=== PATIENT | female | born 1960 | race Caucasian/White ===

== ENCOUNTER 2019-09-07 10:25 | Emergency (ER) | payer MEDICAID, OTHER ==
--- OUTSIDE RECORDS SUMMARY | 2019-09-07 10:27 | XMS REPORT ---
:1960 Author Organization e[employer] Care Team Providers Name Role Phone [facility] Provider Role Unavailable Allergies, Adverse Reactions, Alerts Substance Reaction Event Type Sulfa Info Not Available Drug Allergy Problems Problem Type Condition Code Onset Dates Condition Status Assessment Tobacco use disorder F17.200 Active Assessment Panic disorder [episodic paroxysmal F41.0 Active anxiety] Assessment Left ankle pain, unspecified M25.572 Active chronicity Assessment Adult BMI 28.0-28.9 kg/sq m Z68.28 Active Problem Panic disorder [episodic paroxysmal F41.0 Active anxiety] Problem Tobacco use disorder F17.200 Active Problem Generalized anxiety disorder F41.1 Active Assessment 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), combined type Assessment Generalized anxiety disorder F41.1 Active Problem 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), combined type Medications Medication Code Code Instructions Start End Status Dosage System Date Date Adderall ND 53969214348 30 MG Orally Dec 10, Active 1 tablet Twice a day 2019 Alprazolam NDC [id number] 1 MG Orally Dec 10, Active 1 tablet Twice a day PRN 2019 SEVERE ANXIETY Alprazolam NDC [id number] 1 MG Orally Inactive 1 tablet on Twice a day PRN the tongue SEVERE ANXIETY and allow to dissolve Results No Known Results Summary Purpose eClinicalWorks Submission
[2019-09-07] MEDS ORDERED: IBUPROFEN 200 MG TAB PO ONE (11:21)
[2019-09-07] MEDS ORDERED: ACETAMINOPHEN 500 MG TAB ONE (11:22)
[2019-09-07] MEDS ORDERED: IBUPROFEN 400 MG TAB ONE (11:22)
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
[2019-09-07 12:52] VITALS: O2SAT 100
[2019-09-07 12:54] VITALS: BP 110/76; TEMP 98
== END 2019-09-07 12:44 | disposition home or self-care (01) ==
LOC: ER 10:25
DX: S93.601A Unspecified sprain of right foot, initial encounter (principal); S23.3XXA Sprain of ligaments of thoracic spine, initial encounter; V59.40XA Driver of pick-up truck or van injured in collision with unspecified motor vehicles in traffic accident, initial encounter; Z88.2 Allergy status to sulfonamides; I10 Essential (primary) hypertension; F17.210 Nicotine dependence, cigarettes, uncomplicated
CPT/HCPCS: 71046; 72070; 99283

== ENCOUNTER 2020-08-13 15:40 | Emergency (ER) | payer OTHER ==
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
[2020-08-13] MEDS ORDERED: LORazepam 2 MG/ML VIAL ONE (16:18)
[2020-08-13] MEDS ORDERED: ONDANSETRON 4 MG/2 ML VIAL ONE (16:18)
[2020-08-13] MEDS ORDERED: NA CHLORIDE 0.9% 1,000 ML ONE (16:18)
[2020-08-13 16:33] LABS: Basophils % 0.7 % (0-1.3); Hematocrit 37.6 % (36.0-45.0); Lymphocytes % 27.8 % (15.3-44.8); MPV 9.6 fL (7.6-11.3); RBC Red Blood Cell Count 4.03 M/uL (3.86-4.86)
[2020-08-13] MEDS ORDERED: LORAZEPAM 1 MG TABLET ONE (16:50)
[2020-08-13] MEDS ORDERED: ONDANSETRON 4 MG (ODT) TAB ONE (16:50)
[2020-08-13 16:58] LABS: Protime INR 0.95
[2020-08-13 17:21] LABS: ALT/SGPT 35 U/L (12-78); AST/SGOT 47 U/L (15-37); Alkaline Phosphatase 81 U/L (45-117); BUN Blood Urea Nitrogen 15 mg/dL (7-18); Bicarbonate 24 mmol/L (21-32); Bilirubin Direct 0.2 mg/dL (0-0.2); Glucose Level 88 mg/dL (74-106); Potassium 3.4 mmol/L (3.5-5.1); Protein, Total 7.6 g/dL (6.4-8.2); Sodium Level 142 mmol/L (136-145); Troponin I < 0.02 ng/mL (0.0-0.045)
--- NOTE | 2020-08-13 18:06 | EDPHYS ---
Physician Documentation [facility] Name: Ana Anne Age: 60 yrs Sex: Female : 1960 Arrival Date: 08/13/2020 Time: 15:42 Bed 5 Private MD: ED Physician Jeromy Cool HPI: 08/13 15:55 This 60 yrs old Female presents to ER via Ambulatory with complaints of Drug cp Abuse, Anxiety. 15:55 The patient presents to the emergency department with anxiety, a history of substance cp abuse, Type: methamphetamines, last use 3 days ago. 15:55 Past psychiatric history: Prior diagnosis: bipolar disorder. Associated signs and cp symptoms: Pertinent positives; chest pain, Pertinent negatives: abdominal pain, hallucinations, homicidal ideation, suicide ideation. Severity of symptoms: in the emergency department the symptoms are unchanged despite home interventions. Historical: - Allergies: 15:51 Sulfa (Sulfonamide Antibiotics); sv - PMHx: 15:51 Anxiety; Bipolar disorder; Hypertension; intermittant hypertension; OVERDOSE - SUICIDE sv ATTEMPT; - PSHx: 15:51 Appendectomy; ; L arm; sv - Social history:: Patient uses street drugs, marijuana, Methamphetamine (Meth). ROS: 16:00 Constitutional: Negative for body aches, chills, fever, poor PO intake. cp 16:00 Eyes: Negative for injury, pain, redness, and discharge. cp 16:00 ENT: Negative for ear pain, sore throat, difficulty swallowing, difficulty handling secretions. 16:00 Cardiovascular: Positive for chest pain, Negative for edema, palpitations. 16:00 Respiratory: Negative for cough, wheezing. 16:00 Abdomen/GI: Positive for nausea, vomiting, Negative for diarrhea, constipation. 16:00 Neuro: Negative for altered mental status, headache, weakness. 16:00 Psych: Positive for anxiety, Negative for auditory hallucinations, visual hallucinations, homicidal ideation, suicidal ideation. 16:00 All other systems are negative. Exam: 16:05 Constitutional: The patient appears in no acute distress, alert, awake, cp non-diaphoretic, non-toxic, well developed, well nourished, anxious. 16:05 Head/Face: Normocephalic, atraumatic. cp 16:05 Eyes: Periorbital structures: appear normal, Pupils: equal, round, and reactive to light and accomodation, Extraocular movements: intact throughout, Conjunctiva: normal, no exudate, no injection, Sclera: no appreciated abnormality, Lids and lashes: appear normal, bilaterally. 16:05 ENT: External ear(s): are unremarkable, Nose: is normal, Mouth: Lips: moist, Oral mucosa: moist, Posterior pharynx: Airway: no evidence of obstruction, patent. 16:05 Neck: ROM/movement: is normal, is supple, without pain, no range of motions limitations. 16:05 Chest/axilla: Inspection: normal, Palpation: is normal, no crepitus, no tenderness. 16:05 Cardiovascular: Rate: normal, Rhythm: regular, Edema: is not appreciated, JVD: is not appreciated. 16:05 Respiratory: the patient does not display signs of respiratory distress, Respirations: normal, no use of accessory muscles, no retractions, labored breathing, is not present, Breath sounds: are clear throughout, no decreased breath sounds, no stridor, no wheezing. 16:05 Abdomen/GI: Inspection: abdomen appears normal, Bowel sounds: active, all quadrants, Palpation: abdomen is soft and non-tender, in all quadrants. 16:05 Back: pain, is absent, ROM is normal. 16:05 Skin: no rash present. 16:05 Neuro: Orientation: to person, place \T\ time. Mentation: is normal, Motor: moves all fours, strength is normal, Gait: is steady, at a normal pace, without difficulty. 16:05 Psych: Behavior/mood is cooperative, anxious, Affect is animated, Patient has no thoughts/intents to harm self or others. Judgement / Insight is normal. Delusions/hallucinations are not present. 16:15 ECG was reviewed by the Attending Physician. cp Vital Signs: 15:49 BP 142 / 109; Pulse 106; Resp 20; Temp 97.6; Pulse Ox 99% ; sv 16:00 BP 132 / 81; Pulse 82; Resp 20; Pulse Ox 100% on R/A; em MDM: 15:54 Patient medically screened. cp 17:00 Differential diagnosis: acute psychosis, drug overdose, cardiac arrythmia. cp 18:05 Data reviewed: vital signs, nurses notes, lab test result(s), EKG. 08/13 15:53 Order name: Acetaminophen; Complete Time: 17:32 cp 08/13 15:53 Order name: Basic Metabolic Panel; Complete Time: 17:32 cp 08/13 17:33 Interpretation: Normal except: K 3.4; CL 111; GFR 47. cp 08/13 15:53 Order name: CBC with Diff; Complete Time: 17:16 cp 08/13 17:16 Interpretation: Normal except: PLT 142. 08/13 15:53 Order name: ETOH Level; Complete Time: 17:32 cp 08/13 15:53 Order name: Hepatic Function; Complete Time: 17:32 cp 08/13 15:53 Order name: PT-INR; Complete Time: 17:16 cp 08/13 15:53 Order name: Ptt, Activated; Complete Time: 17:16 cp 08/13 15:53 Order name: Salicylate; Complete Time: 17:32 cp 08/13 15:53 Order name: Troponin I; Complete Time: 17:32 cp 08/13 15:53 Order name: EKG; Complete Time: 15:55 08/13 15:53 Order name: EKG - Nurse/Tech; Complete Time: 16:41 08/13 15:53 Order name: Labs collected and sent; Complete Time: 16:41 cp EC:15 Rate is 83 beats/min. Rhythm is regular. VA interval is normal. QRS interval is normal. cp QT interval is normal. Interpreted by me. Reviewed by me. Administered Medications: 16:40 Drug: Zofran (Ondansetron) 4 mg Route: PO; em 17:56 Follow up: Response: No adverse reaction em 16:40 Drug: Ativan 1 mg Route: PO; em 17:57 Follow up: Response: No adverse reaction em 16:41 Not Given (Physician Discretion): Zofran (Ondansetron) 4 mg IVP once; over 2 minutes em 16:41 Not Given (Physician Discretion): Ativan 0.5 mg IVP once em 16:41 Not Given (Physician Discretion): NS 0.9% 1000 ml IV at 1000 ml/hr Per protocol; 1000 em mL bolus 17:57 Not Given (Patient Eloped): Potassium Effervescent Tablet 25 mEq PO once; dissolve in 4 em ounces of water or juice Disposition: 18:09 Co-signature as Attending Physician, Jeromy Cool MD. rn Disposition: 08/13/20 18:05 Patient left the facility after being seen by provider. Preliminary diagnosis is Adverse effect of amphetamines. - Patient left due to unknown. - Condition is Stable. - Problem is new. - Symptoms have improved. Signatures: Dispatcher [employer] Reina Rodriguez, SURENDRA AGOSTO Raj George RN RN Jeromy Cool MD MD rn Page, Corey, NUVIA PA cp Corrections: (The following items were deleted from the chart) 17:57 15:53 IV Saline Lock ordered. [facility] 17:57 15:53 Urine Dipstick-Ancillary ordered. [facility] 18:01 15:55 URINE DRUG SCREEN+CHEM UR.LAB.BRZ ordered. [facility] 18:09 18:05 08/13/2020 18:05 Patient left the facility after being seen by provider. em Preliminary diagnosis is Adverse effect of amphetamines. Reason stated they are leaving due to unknown. Condition is Stable. Problem is new. Symptoms have improved. cp
--- NOTE | 2020-08-13 18:06 | ER ---
Nurse's Notes [facility] Name: Ana Anne Age: 60 yrs Sex: Female : 1960 Arrival Date: 08/13/2020 Time: 15:42 Bed 5 Private MD: Diagnosis: Adverse effect of amphetamines Presentation: 08/13 15:49 Chief complaint: Patient states: smokes marijuana daily and 2 days ago her friend had sv her smoke some meth. Since then she has been having anxiety. Coronavirus screen: Client denies travel out of the [place] in the last 14 days. At this time, the client does not indicate any symptoms associated with coronavirus-19. Ebola Screen: No symptoms or risks identified at this time. Initial Sepsis Screen: Does the patient meet any 2 criteria? No. Patient's initial sepsis screen is negative. Does the patient have a suspected source of infection? No. Patient's initial sepsis screen is negative. Risk Assessment: Do you want to hurt yourself or someone else? Patient reports no desire to harm self or others. Onset of symptoms was August 11, 2020. 15:49 Method Of Arrival: Ambulatory sv 15:49 Acuity: ISABEL 3 sv Historical: - Allergies: 15:51 Sulfa (Sulfonamide Antibiotics); sv - PMHx: 15:51 Anxiety; Bipolar disorder; Hypertension; intermittant hypertension; OVERDOSE - SUICIDE sv ATTEMPT; - PSHx: 15:51 Appendectomy; ; L arm; sv - Social history:: Patient uses street drugs, marijuana, Methamphetamine (Meth). Screenin:00 Abuse screen: Denies threats or abuse. Nutritional screening: No deficits noted. em Tuberculosis screening: No symptoms or risk factors identified. Fall Risk None identified. Assessment: 16:00 General: Appears in no apparent distress. uncomfortable, Behavior is cooperative, em anxious. Pain: Denies pain. Neuro: Level of Consciousness is awake, alert, obeys commands, Oriented to person, place, time, situation. Cardiovascular: Capillary refill < 3 seconds Patient's skin is warm and dry. Respiratory: Airway is patent Respiratory effort is even, unlabored, Respiratory pattern is regular, symmetrical. GI: Reports nausea. Derm: Skin is intact, is healthy with good turgor, Skin is pink, warm \T\ dry. Musculoskeletal: Range of motion: intact in all extremities. 16:34 Reassessment: unable to obtain IV at this time, provider notified, received VO for 1 mg em Ativan PO and Zofran 4 mg PO x 1. 17:40 Reassessment: pt not in room, checked restrooms. em Vital Signs: 15:49 BP 142 / 109; Pulse 106; Resp 20; Temp 97.6; Pulse Ox 99% ; sv 16:00 BP 132 / 81; Pulse 82; Resp 20; Pulse Ox 100% on R/A; em ED Course: 15:42 Patient arrived in ED. ds1 15:46 Raj George, RN is Primary Nurse. em 15:47 Vinod Gonzales PA is PHCP. cp 15:47 Jeromy Cool MD is Attending Physician. cp 15:50 Triage completed. sv 15:51 Nurse Practitioner and/or Physician Electronic Test Technician to see patient. sv 15:51 Arm band placed on. sv 16:00 Patient has correct armband on for positive identification. Bed in low position. Call em light in reach. Side rails up X2. Adult w/ patient. Pulse ox on. NIBP on. 16:18 EKG done, by ED staff, reviewed by Vinod PEDERSEN. dh3 16:20 Missed attempt(s): 22 gauge in left antecubital area. Bleeding controlled, band aid em applied, catheter tip intact. 16:23 Missed attempt(s): 24 gauge in right hand. Bleeding controlled, band aid applied, em catheter tip intact. 16:27 Missed attempt(s): 20 gauge in left antecubital area. Bleeding controlled, band aid dh3 applied, catheter tip intact. 16:35 Missed attempt(s): 24 gauge in right wrist. Bleeding controlled, band aid applied, dh3 catheter tip intact. Administered Medications: 16:40 Drug: Zofran (Ondansetron) 4 mg Route: PO; em 17:56 Follow up: Response: No adverse reaction em 16:40 Drug: Ativan 1 mg Route: PO; em 17:57 Follow up: Response: No adverse reaction em 16:41 Not Given (Physician Discretion): Zofran (Ondansetron) 4 mg IVP once; over 2 minutes em 16:41 Not Given (Physician Discretion): Ativan 0.5 mg IVP once em 16:41 Not Given (Physician Discretion): NS 0.9% 1000 ml IV at 1000 ml/hr Per protocol; 1000 em mL bolus 17:57 Not Given (Patient Eloped): Potassium Effervescent Tablet 25 mEq PO once; dissolve in 4 em ounces of water or juice Outcome: 17:40 Eloped from waiting room, after seeing physician Time discovered patient gone: July at 17:40 18:09 Patient left the ED. em Signatures: Reina Tsai RN RN Raj George RN RN Deepti Singh ds1 Vinod Gonzales PA PA cp Herrera, Deanna 3 Corrections: (The following items were deleted from the chart) 15:51 15:49 Onset of symptoms was August 12, 2020 federico caballero
[2020-08-13 22:44] VITALS: TEMP 97.6
[2020-08-13 22:45] VITALS: BP 132/81; O2SAT 100
== END 2020-08-13 18:09 | disposition left against medical advice (07) ==
LOC: ER 15:40
DX: F41.9 Anxiety disorder, unspecified (principal); T43.625A Adverse effect of amphetamines, initial encounter; F31.9 Bipolar disorder, unspecified; Z88.2 Allergy status to sulfonamides
CPT/HCPCS: 93005; 85025; 80048; 36415; 80320; 80329 ×2; 85610; 80076; 85730; 84484; 99283; J7030; J2405

== ENCOUNTER 2020-09-05 17:33 | Emergency (ER) | payer OTHER ==
--- OUTSIDE RECORDS SUMMARY | 2020-09-05 17:35 | XMS REPORT | Continuity of Care Document ---
:1960 Author Organization [facility] t Address [address] [place] [address] Care Team Providers Name Role Phone Unavailable Unavailable Unavailable Problems Condition Condition Condition Status Onset Resolution Last Treating Co mments Source Name Details Category Date Date Treatment Clinician Date Tobacco Tobacco Problem Active [facility] Panic Panic Problem Active [facility] disorder disorder [facility] - [episodic [episodic Rikki cherie paroxysmal paroxysmal l anxiety] anxiety] Outpat i ent Clinics Generalize Generalize Problem Active [facility] anxiety d anxiety [facility] - disorder disorder [facility] Attention Attention Problem Active [facility] deficit deficit [facility] - hyperactiv hyperactiv Me moria ity ity l disorder disorder Outpat i (ADHD), (ADHD), 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 History of History of Problem Active [facility] cannabis cannabis [facility] - dependence dependence Me moria /abuse /[facility]use [facility] Vitamin D Vitamin D Problem Active [facility] deficiency deficiency Zainab kes - disease disease [facility] Allergies, Adverse Reactions, Alerts Allergy Allergy Status Severity Reaction(s) Onset Inactive Treating Comm ents Source Name Type Date Date Clinician Sulfa Adverse Active Info Not [facility] Reaction Available [facility] Medications Ordered Filled Start Stop Current Ordering Indication Dosage Frequency Signature Comments Components Source Medication Medication Date Date Medication? Clinician (SIG) Name Name Adderall Adderall Yes Boris [address] [facility] 7-07 Szym[facility]ki [facility] - 00:00: [facility] 00 [facility] Alprazolam Alprazolam 2018-09 Yes Boris [address] [facility] 2-10 Szymanski [facility] - 00:[facility]: [facility] 00 [facility] Procedures This patient has no known procedures. Encounters Start End Encounter Admission Attending Care Care Encounter Source Date/Time Date/Time Type Type Clinicians Facility Department ID 2020-03-28 2020-03-28 [facility] [id number] [facility] [address] 09:08:00 09:08:[address] [facility] l Medicine Outpati ent Clinics 2020-03-08 2020-03-08 [facility] [id number] [facility] 08[facility]04[facility]00 08:04:00 t [facility] Medicine Outpati ent Clinics 2020-02-28 2020-02-28 [facility] [id number] [facility] [address] 10:00:00 10:00:[address] [facility] l Medicine Outpati ent Clinics 2019-12-29 2019-12-29 [facility] [id number] [facility] [address] 11:00:00 11:00:00 t [facility] Medicine Outpati ent Clinics 2019-11-30 2019-11-30 [facility] [id number] [facility] 11[facility]32:00 11:32:00 t [facility] Medicine Outpati ent Clinics 2019-11-30 2019-11-30 [facility] [id number] [facility] 08:30:00 08:30:00 t [facility] Medicine Outpati ent Clinics 2019-11-01 2019-11-01 [facility] [id number] [address] 10:30:00 10:30:00 t [facility] Medicine Outpati ent Clinics 2019-09-30 2019-09-30 [facility] [id number] 08:30:00 08:30:00 t [facility] Medicine Outpati ent Clinics 2019-08-31 2019-08-31 [facility] [id number] 10:00:00 10:00:00 t [facility] Medicine Outpati ent Clinics Results This patient has no known results.
[2020-09-05] MEDS ORDERED: LIDOCAINE 1% MPF 5 ML VIAL ONE (19:43)
--- NOTE | 2020-09-05 19:51 | ER ---
Nurse's Notes [facility] Name: Ana Anne Age: 60 yrs Sex: Female : 1960 Arrival Date: 09/05/2020 Time: 17:36 Bed 15 Private MD: Diagnosis: Finger Laceration Presentation: 09/05 17:47 Chief complaint: Patient states: laceration to the left index finger with a knife. sv Coronavirus screen: Client denies travel out of the [place] in the last 14 days. At this time, the client does not indicate any symptoms associated with coronavirus-19. Ebola Screen: No symptoms or risks identified at this time. Complicating Factors: There are no complicating factors for this patient. Risk Assessment: Do you want to hurt yourself or someone else? Patient reports no desire to harm self or others. Onset of symptoms was September 05, 2020. 17:47 Method Of Arrival: Ambulatory sv 17:47 Acuity: ISABEL 4 sv 17:48 Initial Sepsis Screen: Does the patient meet any 2 criteria? No. Patient's initial sv sepsis screen is negative. Does the patient have a suspected source of infection? No. Patient's initial sepsis screen is negative. Triage Assessment: 17:50 General: Appears in no apparent distress. comfortable, Behavior is calm, cooperative, sv appropriate for age. Pain: Complains of pain in left index finger. Neuro: Level of Consciousness is awake, alert, obeys commands, Oriented to person, place, time, situation, Gait is steady. Respiratory: Respiratory effort is even, unlabored. Injury Description: Laceration sustained to palmar aspect of distal phalanx of left index finger is contaminated, 0.5 to 2.5 cm long. Historical: - Allergies: 17:48 Sulfa (Sulfonamide Antibiotics); sv - PMHx: 17:48 Anxiety; Bipolar disorder; Hypertension; intermittant hypertension; OVERDOSE - SUICIDE sv ATTEMPT; - PSHx: 17:48 Appendectomy; ; L arm; sv - Immunization history:: Flu vaccine is up to date. - Social history:: Smoking status: Patient reports the use of cigarette tobacco products, smokes one pack cigarettes per day. Screenin:20 Abuse screen: Denies threats or abuse. Nutritional screening: No deficits noted. jb4 Tuberculosis screening: No symptoms or risk factors identified. Fall Risk None identified. Assessment: 19:20 General: Appears in no apparent distress. comfortable, Behavior is calm, cooperative, jb4 appropriate for age. Pain: Denies pain. Neuro: Level of Consciousness is awake, alert, obeys commands, Oriented to person, place, time, situation. Cardiovascular: Patient's skin is warm and dry. Respiratory: Airway is patent Respiratory effort is even, unlabored, Respiratory pattern is regular, symmetrical. GI: No signs and/or symptoms were reported involving the gastrointestinal system. : No signs and/or symptoms were reported regarding the genitourinary system. EENT: No signs and/or symptoms were reported regarding the EENT system. Derm: Skin is pink, warm \T\ dry. Musculoskeletal: Circulation, motion, and sensation intact. Range of motion: intact in all extremities. Injury Description: Laceration sustained to left index finger. Vital Signs: 17:48 BP 107 / 71; Pulse 72; Resp 18; Temp 97.1; Pulse Ox 99% ; Weight 95.25 kg; Height 5 ft. sv 7 in. (170.18 cm); 17:48 Body Mass Index 32.89 (95.25 kg, 170.18 cm) sv ED Course: 17:36 Patient arrived in ED. as 17:43 Patient's name was called from ER lobby. No response. sv 17:47 Triage completed. sv 18:38 Emory Calderón PA is PHCP. [facility] 18:38 Vinod Eagle MD is Attending Physician. m 19:20 Patient has correct armband on for positive identification. Bed in low position. Call jb4 light in reach. Side rails up X 1. Pulse ox on. NIBP on. 19:20 Assist provider with laceration repair on left index finger using sutures. Set up tray. jb4 Performed by Emory PEDERSEN Patient tolerated well. Patient did not have IV access during this emergency room visit. 19:35 Markus Monroy, RN is Primary Nurse. jb4 Administered Medications: 19:35 Drug: Lidocaine (1 %) 20 ml {Note: administered by ER provider.} Volume: 20 ml; Route: jb4 Infiltration; 19:50 Follow up: Response: No adverse reaction jb4 Outcome: 19:50 Discharge ordered by . jm 20:15 Discharged to home ambulatory. jb4 20:15 Condition: stable 20:15 Discharge instructions given to PT left prior to receiving discharge instructions. 20:27 Patient left the ED. jb4 Signatures: Reina Tsai, RN RN Emory Calderón PA PA jmm Martinez, Amelia as Bryson, James, RN RN jb4 Corrections: (The following items were deleted from the chart) 17:50 17:47 Acuity: ISABEL 3 sv sv 17:50 17:48 Pulse 72bpm; Resp 18bpm; Pulse Ox 99%; Temp 97.1F; 95.25 kg; Height 5 ft. 7 in.; sv BMI: 32.8; sv
--- NOTE | 2020-09-05 19:51 | EDPHYS ---
Physician Documentation [facility] Name: Ana Anne Age: 60 yrs Sex: Female : 1960 Arrival Date: 09/05/2020 Time: 17:36 Bed 15 Private MD: ED Physician Vinod Eagle HPI: 09/05 19:40 This 60 yrs old Female presents to ER via Ambulatory with complaints of jmm Laceration - finger. 19:40 The patient or guardian reports injury, pain. Onset: The symptoms/episode jmm began/occurred acutely, just prior to arrival. Modifying factors: The symptoms are alleviated by nothing, the symptoms are aggravated by nothing. Associated signs and symptoms: Pertinent negatives: cyanosis distally, decreased sensation distally, fever, numbness distally, tingling distally, vomiting. The patient has experienced similar episodes in the past. Patient accidently cut herself with a knife while cutting weiners for her dog. Patient states she is utd on her tetanus immunizations. . Historical: - Allergies: 17:48 Sulfa (Sulfonamide Antibiotics); sv - PMHx: 17:48 Anxiety; Bipolar disorder; Hypertension; intermittant hypertension; OVERDOSE - SUICIDE sv ATTEMPT; - PSHx: 17:48 Appendectomy; ; L arm; sv - Immunization history:: Flu vaccine is up to date. - Social history:: Smoking status: Patient reports the use of cigarette tobacco products, smokes one pack cigarettes per day. ROS: 19:40 Constitutional: Negative for fever, chills, and weight loss, Cardiovascular: Negative jmm for chest pain, palpitations, and edema, Respiratory: Negative for shortness of breath, cough, wheezing, and pleuritic chest pain. 19:40 Skin: Positive for laceration(s). 19:40 All other systems are negative. Exam: 19:47 Constitutional: This is a well developed, well nourished patient who is awake, alert, jmm and in no acute distress. Head/Face: atraumatic. Eyes: EOMI, no conjunctival erythema appreciated ENT: Moist Mucus Membranes Neck: Trachea midline, Supple Chest/axilla: Normal chest wall appearance and motion. Cardiovascular: Regular rate and rhythm. No edema appreciated Respiratory: Normal respirations, no respiratory distress appreciated Abdomen/GI: Non distended, soft Back: Normal ROM 19:47 Neuro: Awake and alert, normal gait Psych: Behavior is normal, Mood is normal, Patient is cooperative and pleasant 19:47 Musculoskeletal/extremity: FROM appreciated to the left indix finger at the pip and dip, < 2 sec dist cap reffill, NVI. 19:47 Skin: 2 cm laceration noted to the left index finger. Vital Signs: 17:48 BP 107 / 71; Pulse 72; Resp 18; Temp 97.1; Pulse Ox 99% ; Weight 95.25 kg; Height 5 ft. sv 7 in. (170.18 cm); 17:48 Body Mass Index 32.89 (95.25 kg, 170.18 cm) sv Laceration: 19:48 Wound Repair of 2cm ( 0.8in ) subcutaneous laceration to left index finger. Distal jmm neuro/vascular/tendon intact. Anesthesia: Digital block administered with 3 mls of 1% lidocaine. Wound prep: Simple cleansing with betadine by me. Skin closed with 4 5-0 Prolene using simple sutures and sterile technique. Patient tolerated well. MDM: 19:25 Patient medically screened. [facility] 19:48 Data reviewed: vital signs, nurses notes. Counseling: I had a detailed discussion with dale the patient and/or guardian regarding: the historical points, exam findings, and any diagnostic results supporting the discharge/admit diagnosis, lab results, radiology results, the need for outpatient follow up, to return to the emergency department if symptoms worsen or persist or if there are any questions or concerns that arise at home. ED course: Patient is alert and non toxic in appearance in the ED. Patient given wound infection return precautions. Patient understood and agrees with the plan of care. . Administered Medications: 19:35 Drug: Lidocaine (1 %) 20 ml {Note: administered by ER provider.} Volume: 20 ml; Route: jb4 Infiltration; 19:50 Follow up: Response: No adverse reaction jb4 Disposition: 09/06 11:54 Co-signature as Attending Physician, Vinod Eagle MD I agree with the assessment and doreen plan of care. Disposition: 09/05/20 19:50 Discharged to Home. Impression: Finger Laceration. - Condition is Stable. - Discharge Instructions: Laceration Care, Adult. - Medication Reconciliation Form, Thank You Letter, Antibiotic Education, Prescription Opioid Use form. - Follow up: Private Physician; When: 7 - 10 days; Reason: Recheck today's complaints, Continuance of care, Staple/Suture removal, Re-evaluation by your physician. Signatures: Reina Tsai, RN RN Vinod Zhang MD MD cha Mickail, Joel, PA PA jmm Bryson, James, RN RN jb4 Corrections: (The following items were deleted from the chart) 09/05 20:27 19:50 09/05/2020 19:50 Discharged to Home. Impression: Finger Laceration. Condition is jb4 Stable. Forms are Medication Reconciliation Form, Thank You Letter, Antibiotic Education, Prescription Opioid Use. Follow up: Private Physician; When: 7 - 10 days; Reason: Recheck today's complaints, Continuance of care, Staple/Suture removal, Re-evaluation by your physician. dale
[2020-09-07 20:37] VITALS: BP 107/71; TEMP 97.1; O2SAT 99
== END 2020-09-05 20:27 | disposition home or self-care (01) ==
LOC: ER 17:33
PROC: 0JQK0ZZ Repair Left Hand Subcutaneous Tissue and Fascia, Open Approach (ICD-10-PCS; principal; 2020-09-05)
DX: S61.211A Laceration without foreign body of left index finger without damage to nail, initial encounter (principal); W26.0XXA Contact with knife, initial encounter; Y93.89 Activity, other specified; Y92.009 Unspecified place in unspecified non-institutional (private) residence as the place of occurrence of the external cause; I10 Essential (primary) hypertension; F17.210 Nicotine dependence, cigarettes, uncomplicated; Z88.2 Allergy status to sulfonamides
CPT/HCPCS: 99283

== ENCOUNTER 2022-04-15 18:43 | Emergency (ER) | payer OTHER ==
--- OUTSIDE RECORDS SUMMARY | 2022-04-15 18:45 | XMS REPORT | Continuity of Care Document ---
:1960 Author Organization [facility] t Address [address] [place] [address] Care Team Providers Name Role Phone HYUN MATIAS Primary Care Physician Unavailable Van Attending Clinician Unavailable Stephon Attending Clinician Unavailable ED MARTINI Attending Clinician Unavailable Ed Saini Attending Clinician ED MARTINI Admitting Clinician Unavailable Payers Payer Name Policy Type Policy Number Effective Date Expiration Date [facility] [id number] 2016 MEDICAID 00:00:00 Problems Condition Condition Condition Status Onset Resolution Last Treating Co mments Source Name Details Category Date Date Treatment Clinician Date HAYLEY HAYLEY Disease Active Univers (generaliz (generaliz 06-15 it y of ed [place] disorder[place] disorder[place] 00 [facility] Branch Drug use Drug use Disease Active Overview: Un tommie 06-15 Formattin ity of 00:00: g of this [place] 00 note Medical might be Branch different from the original. Xanax high doses -2mg TID. Tobacco Tobacco Problem Active Common use use Spirit disorder disorder - [facility] Panic Panic Problem Active Common disorder disorder Spirit [episodic [episodic - [facility] I paroxysmal paroxysmal St anxiety] anxiety] [facility] Generalize Generalize Problem Active C ommon d anxiety d anxiety Spir it disorder disorder - [facility] Attention Attention Problem Active Com mon deficit deficit Spirit hyperactiv hyperactiv - [facility] ity ity St disorder disorder [facility] (ADHD), (ADHD), Medical combined combined Center type type History of History of Problem Active C ommon cannabis cannabis Spirit dependence dependence - [facility] /abuse /abuse [facility] Vitamin D Vitamin D Problem Active Com mon deficiency deficiency Sp [place] disease disease - [facility] Allergies, Adverse Reactions, Alerts Allergy Allergy Status Severity Reaction(s) Onset Inactive Treating Comm ents Source Name Type Date Date Clinician No Known DA Active U 2019-09 SJm Drug 10-14 Allergie 00:00: s 00 SULFUR DRUG Active Rash Univers INGREDI 06-15 ity of 00:00: [place] 00 Medical Branch Sulfur Propensi Active Rash Univers ty to 06-15 ity of adverse 00:00: [place] reaction 00 Medical s to Branch drug Sulfa Adverse Active Info Not Common Reaction Available Spiri t - [facility] Social History Social Habit Start Date Stop Date Quantity Comments Source Exposure to Not sure [facility] SARS-CoV-2 (event) [facility] [place] [facility] History of tobacco Cigarette Smoker University of use [facility] Alcohol intake 2012-06-16 2012-06-16 Current University of 00:00:00 00:00:00 non-drinker of [facility] alcohol Branch (finding) Cigarettes smoked 2012-06-15 2012-06-15 Univers ity of current (pack per 00:00:00 00:00:00 [place] [facility] ) - Reported Branch Cigarette 2012-06-15 2012-06-15 University of pack-years 00:00:00 00:00:00 [facility] Sex Assigned At [birth year] Universit y of 00:00:00 00:00:00 [facility] Smoking Status Start Date Stop Date Source Current every day smoker 2012-06-15 00:00:00 Uni versity of [facility] Medications Ordered Filled Start Stop Current Ordering Indication Dosage Frequency Signature Comments Components Source Medication Medication Date Date Medication? Clinician (SIG) Name Name naproxen No 500mg 500 mg, Univ ers (NAPROSYN) 12-20 Oral, ity of tablet 500 00:00: 23:01 ONCE, 1 Mio as mg 00 :00 dose, On Medical Wed Branch 12/19/21 at 1900, Routine HYDROcodone 2022-0 2022- No 1{tbl} 1 tablet, Univers -acetaminop 3-31 03-30 Oral, ity of hen (NORCO) 00:00: 23:01 [place]CE[place] 1 [place] 10-325 mg 00 :00 dose, On Medica l tablet 1 Wed Branch tablet 12/19/21 at 1900, Routine naproxen 0 Yes [id number] 500mg Take 1 Un tommie (NAPROSYN) 3-30 tablet by ity of 500 mg 00:00: mouth 2 [place] tablet 00 (two) Medical times Branch daily with meals. traMADoL 50 Yes [id number] 50mg Take 1 Univ ers mg tablet 3-30 tablet by ity o f 00:00: mouth [place] 00 every 6 Medical (six) Branch hours as needed for Pain (scale 4-6). Indication s: acute pain Adderall Adderall Yes Boris 1 tablet Common 7-07 Szymanski Spirit 00:00: - [facility] 00 [facility] Alprazolam Alprazolam 2018-09 Yes Boris 1 tablet Common 2-10 Szym[place]ki Spirit 00:00: - [facility] 00 [facility] acetaminoph Yes 1{tbl} Take 1 Un tommie en-codeine 7-11 tablet by ity of (TYLENOL-CO 00:00: mouth [place] DEINE #3) 00 every 6 Medical 300-30 mg (six) Branch tablet hours as needed for Pain (scale 7-10). ibuprofen Yes 800mg Take 1 Unive rs (MOTRIN) 7-11 tablet by ity of 800 mg 00:00: mouth [place] tablet 00 every 6 Medical (six) Branch hours as needed for Pain (scale 4-6) or Pain unrelieved by Tylenol. acetaminoph Yes 1{tbl} Take 1 Un tommie en-codeine 7-11 tablet by ity of (TYLENOL-CO 00:00: mouth [place] DEINE #3) 00 every 4 Medical 300-30 mg (four) Branch tablet hours as needed for Pain (scale 7-10). ibuprofen Yes 800mg Take 1 Unive rs (MOTRIN) 7-11 tablet by ity of 800 mg 00:00: mouth [place] tablet 00 every 6 Medical (six) Branch hours as needed for Pain unrelieved by Tylenol. Vital Signs Vital Name Observation Time Observation Value Comments Source Systolic blood 2021-12-19 22:30:00 135 mm[Hg] Univer sity of pressure [facility] [place] [facility] Diastolic blood 2021-12-19 22:30:00 89 mm[Hg] Unive rsity of pressure [facility] Heart rate 2021-12-19 22:30:00 88 /min [facility] Body temperature 2021-12-19 22:30:00 36.83 Barbara [facility] Respiratory rate 2021-12-19 22:30:00 18 /min [facility] Body height 2021-12-19 22:30:00 170.2 cm [facility] Body weight 2021-12-19 22:30:00 104.327 kg [facility] BMI 2021-12-19 22:30:00 36.02 kg/m2 [facility] Oxygen saturation in 2021-12-19 22:30:00 100 /min [facility] blood by [facility] Pulse oximetry Branch Procedures Procedure Date / Time Performed Performing Clinician [facility] e XR HIPS 2 VW LEFT 2021-12-19 23:08:53 Johnathon Martini [facility] NOTICE OF PRIVACY 2021-12-19 22:24:28 Doctor Unassigned, No [facility] CONSENT/REFUSAL FOR 2021-12-19 22:24:05 Doctor Unassigned, No [facility] DIAGNOSIS AND Name Medical Branch TREATMENT Encounters Start End Encounter Admission Attending Care Care Encounter Source Date/Time Date/Time Type Type Clinicians Facility Department ID 2021-10-17 [id number] Common 12:15:29 [id number] [facility] 2021-10-17 [facility] [id number] Common 12:13:54 [id number] [facility] 2021-10-17 Outpatient [facility] [id number] Common 11:17:02 [facility] [id number] [facility] 2020-08-14 Inpatient [facility] [id number] [facility] 01:19:00 40 2021-12-19 2021-12-19 Emergency X Johnathon MARTINI [facility] ERT [id number] Univers 17:31:00 19:54:00 ity of [facility] 2021-12-19 2021-12-19 Emergency Johnathon Martini [facility] [id number] Univers 17:31:00 19:54:00 Ed BROWN [id number] i ty jason GRANDE [id number] [facility] [id number] [address] 2020-03-28 2020-03-28 [facility] [id number] Common 09:08:00 09:08:[address] [facility] 2020-03-08 2020-03-08 [facility] [id number] Common 08:04:00 08:04:[address] [facility] 2020-02-28 2020-02-28 [facility] [id number] Common 10:00:00 10:00:[address] [facility] 2019-12-29 2019-12-29 Out[facility] [id number] Common 11:00:00 11:00:[address] [facility] 2019-11-30 2019-11-30 Out[facility] [id number] Common 11:32:00 11:32:[address] [facility] 2019-11-30 2019-11-30 Out[facility] [id number] Common 08:30:00 08:30:[address] [facility] 2019-11-01 2019-11-01 Outpatient [facility] [id number] Common 10:30:00 10:30:[address] [facility] 2019-09-30 2019-09-30 Out[facility] [id number] Common 08:30:00 08:30:[address] [facility] 2019-08-31 2019-08-31 Outpatient Mary Hernandez [id number] Common 10:00:00 10:00:00 [facility] Lexity [facility] Results This patient has no known results.
[2022-04-15] MEDS ORDERED: HYDROCODONE/APAP 7.5/325 MG TAB ONE (19:54)
--- NOTE | 2022-04-15 20:24 | RAD REPORT ---
EXAM DESCRIPTION: RAD - Ankle Right 3 View - 04/15/2022 8:06 pm CLINICAL HISTORY: PAIN COMPARISON: No comparisons FINDINGS: No acute fracture is identifiable. A 14 x 8 mm bone density is present at the tip of the f ibula. This is probably an old fracture at that failed bony union. No displacement or angulation. Lar ge plantar spur is present. No joint effusion seen. No joint space narrowing. Lateral soft tissue swe lling is present. IMPRESSION: Right ankle lateral soft tissue swelling without acute fracture. The bone density at the tip of the fibula is believed to be from old injury that did not have full barb ny union.
--- NOTE | 2022-04-15 20:32 | ER ---
Nurse's Notes [facility] Name: Ana Anne Age: 62 yrs Sex: Female : 1960 Arrival Date: 04/15/2022 Time: 18:47 Bed Waiting [facility] MD: Diagnosis: Sprain of ankle Presentation: 04/15 19:57 Chief complaint: Patient states: FELL AT POST OFFICE AND HURT RIGHT ANKLE. Coronavirus [facility] screen: Vaccine status: Patient reports receiving the 1st dose of the Covid vaccine. At this time, the client does not indicate any symptoms associated with coronavirus-19. Ebola Screen: Patient negative for fever greater than or equal to 101.5 degrees Fahrenheit, and additional compatible Ebola Virus Disease symptoms. Initial Sepsis Screen: Does the patient meet any 2 criteria? No. Patient's initial sepsis screen is negative. Does the patient have a suspected source of infection? No. Patient's initial sepsis screen is negative. Risk Assessment: Do you want to hurt yourself or someone else? Patient reports no desire to harm self or others. Onset of symptoms was April 15, 2022. 19:57 Method Of Arrival: Wheelchair [facility] 19:57 Acuity: ISABEL 4 [facility] Triage Assessment: 19:58 General: Appears in no apparent distress. uncomfortable, Behavior is calm, cooperative, [facility] appropriate for age. Pain: Complains of pain in right ankle, right Achilles and anterior aspect of right ankle. Musculoskeletal: Reports pain in right ankle, right Achilles and anterior aspect of right ankle. Historical: - Allergies: 19:58 Sulfa (Sulfonamide Antibiotics); [facility] - Home Meds: 19:58 Adderall XR Oral [Active]; Xanax Oral [Active]; 1 - PMHx: 19:58 Anxiety; Bipolar disorder; Hypertension; intermittant hypertension; OVERDOSE - SUICIDE [facility] ATTEMPT; - Immunization history:: Adult Immunizations up to date. - Social history:: Smoking status: Patient denies any tobacco usage or history of. Screenin:38 Abuse screen: Denies threats or abuse. Denies injuries from another. Nutritional ld1 screening: No deficits noted. Tuberculosis screening: No symptoms or risk factors identified. Fall Risk None identified. Assessment: 20:38 Reassessment: See triage assessment. [facility] discharged from [facility]. ld1 Vital Signs: 19:57 BP 112 / 78; Pulse 77; Resp 20; Temp 99.1; Pulse Ox 100% on R/A; Weight 95.25 kg; 1 Height 5 ft. 7 in. (170.18 cm); Pain 7/10; 20:38 BP 109 / 77; Pulse 76; Resp 18; Pulse Ox 100% on R/A; ld1 19:57 Body Mass Index 32.89 (95.25 kg, 170.18 cm) [facility] ED Course: 18:47 Patient arrived in ED. mr 18:51 Graciela Resendiz F[facility]-C [facility]. kb 18:51 Vinod Eagle MD is Attending Physician. kb 19:58 Triage completed. [facility] 19:58 Arm band placed on right wrist. [facility] 20:08 Ankle Right 3 View XRAY In Process Unspecified. EDMN 20:38 Patient has correct armband on for positive identification. Placed in gown. Bed in low ld1 position. Call light in reach. Side rails up X2. desk monitor on. Pulse ox on. NIBP on. Door closed. Noise minimized. Warm blanket given. 20:38 No provider procedures requiring assistance completed. Patient did not have IV access ld1 during this emergency room visit. Administered Medications: 19:46 Drug: [place] (HYDROcodone-acetaminophen) (7.5 mg-325 mg) 1 tabs Route: PO; [facility] 21:12 Follow up: Response: No adverse reaction [facility] Medication: 20:38 VIS not applicable for this client. [facility] Outcome: 20:32 Discharge ordered by . kb 20:38 Discharged to home ambulatory. 1 20:38 Condition: stable 20:38 Discharge instructions given to patient, Instructed on discharge instructions, follow up and referral plans. Demonstrated understanding of instructions, follow-up care. 20:39 Patient left the ED. [facility] Signatures: Dispatcher [employer] EDMS Graciela Resendiz FNP-C FNP-Carlos Alberto Apple Thomas Karen Weathers, RN RN 1 Ana Price RN RN [facility]
--- NOTE | 2022-04-15 20:33 | EDPHYS ---
Physician Documentation [facility] Name: Ana Anne Age: 62 yrs Sex: Female : 1960 Arrival Date: 04/15/2022 Time: 18:47 Bed Waiting Private MD: ED Physician Vinod Eagle HPI: 04/15 20:59 This 62 yrs old Female presents to ER via Wheelchair with complaints of Ankle Injury. kb 20:59 The patient presents with an injury, pain, swelling, tenderness. The complaints affect kb the right ankle. Onset: The symptoms/episode began/occurred today. Context: The problem was sustained outdoors, resulted from the patient falling, The patient can partially bear weight on the affected extremity. the patient is able to ambulate, with mild difficulty. Associated signs and symptoms: Pertinent positives: swelling, Pertinent negatives: calf tenderness, fever, nausea, numbness, rash, tingling, vomiting, warmth, weakness. Modifying factors: The symptoms are alleviated by nothing, the symptoms are aggravated by weight bearing, movement. Severity of symptoms: At their worst the symptoms were moderate, in the emergency department the symptoms are unchanged. The patient has not experienced similar symptoms in the past. The patient has not recently seen a physician. [place]. Complains of pain and swelling to right lateral ankle.. Historical: - Allergies: 19:58 Sulfa (Sulfonamide Antibiotics); bh1 - Home Meds: 19:58 Adderall XR Oral [Active]; Xanax Oral [Active]; bh1 - PMHx: 19:58 Anxiety; Bipolar disorder; Hypertension; intermittant hypertension; OVERDOSE - SUICIDE 1 ATTEMPT; - Immunization history:: Adult Immunizations up to date. - Social history:: Smoking status: Patient denies any tobacco usage or history of. ROS: 21:06 Constitutional: Negative for fever, chills, and weight loss. kb 21:06 MS/extremity: Positive for pain, swelling, tenderness, of the right ankle. 21:06 All other systems are negative. Exam: 21:06 Constitutional: This is a well developed, well nourished patient who is awake, alert, kb and in no acute distress. Head/Face: Normocephalic, atraumatic. ENT: Moist Mucous membranes Cardiovascular: Regular rate and rhythm with a normal S1 and S2. No gallops, murmurs, or rubs. No pulse deficits. Respiratory: Respirations even and unlabored. No increased work of breathing. Talking in full sentences Skin: Warm, dry with normal turgor. Normal color. Neuro: Awake and alert, GCS 15, oriented to person, place, time, and situation. Moves all extremities. Normal gait. Psych: Awake, alert, with orientation to person, place and time. Behavior, mood, and affect are within normal limits. 21:06 Musculoskeletal/extremity: Extremities: grossly normal except: noted in the right ankle: pain, swelling, tenderness, ROM: limited active range of motion due to pain, Circulation is intact in all extremities. Sensation intact. Weight bearing: can bear weight with assistance only. Vital Signs: 19:57 BP 112 / 78; Pulse 77; Resp 20; Temp 99.1; Pulse Ox 100% on R/A; Weight 95.25 kg; [facility] Height 5 ft. 7 in. (170.18 cm); Pain 7/10; 20:38 BP 109 / 77; Pulse 76; Resp 18; Pulse Ox 100% on R/A; ld1 19:57 Body Mass Index 32.89 (95.25 kg, 170.18 cm) [facility] MDM: 19:44 Patient medically screened. 21:07 Data reviewed: vital signs, nurses notes. Data interpreted: Pulse oximetry: on room air kb is 100 %. Interpretation: normal. Counseling: I had a detailed discussion with the patient and/or guardian regarding: the historical points, exam findings, and any diagnostic results supporting the discharge/admit diagnosis, radiology results, the need for outpatient follow up, a family practitioner, to return to the emergency department if symptoms worsen or persist or if there are any questions or concerns that arise at home. 04/15 19:44 Order name: Ankle Right 3 View XRAY; Complete Time: 20:32 kb 04/15 20:33 Order name: Aircast Ankle Splint; Complete Time: 21:11 kb 04/15 20:33 Order name: Crutches; Complete Time: 21:11 kb Administered Medications: 19:46 Drug: [place] (HYDROcodone-acetaminophen) (7.5 mg-325 mg) 1 tabs Route: PO; [facility] 21:12 Follow up: Response: No adverse reaction [facility] Disposition Summary: 04/15/22 20:32 Discharge Ordered Location: Home Condition: Stable kb Diagnosis - Sprain of ankle kb Followup: kb - With: Emergency Department - When: As needed - Reason: Worsening of condition Followup: kb - With: Private Physician - When: 2 - 3 days - Reason: Recheck today's complaints, Continuance of care, Re-evaluation by your physician Discharge Instructions: - Discharge Summary Sheet kb - Ankle Sprain, [id number] kb Forms: - Medication Reconciliation Form kb - Thank You Letter kb - Antibiotic Education kb - Prescription Opioid Use kb Prescriptions: - Diclofenac Sodium 75 mg Oral tablet,delayed release (DR/EC) - take 1 tablet by ORAL route 2 times per day As needed; 30 tablet; Refills: 0, kb Product Selection Permitted Signatures: Dispatcher [employer] Graciela Ferreira, PLANT [employer]-C [employer] BU[employer]ER-Ana Naranjo, RN RN [facility]
[2022-04-15 20:43] VITALS: TEMP 99.1; O2SAT 100
[2022-04-15 20:45] VITALS: BP 109/77
== END 2022-04-15 20:39 | disposition home or self-care (01) ==
LOC: ER 18:43
DX: S93.401A Sprain of unspecified ligament of right ankle, initial encounter (principal); I10 Essential (primary) hypertension; Z88.2 Allergy status to sulfonamides
CPT/HCPCS: 99284

== ENCOUNTER 2022-11-12 23:16 | Emergency (ER) | payer OTHER ==
--- OUTSIDE RECORDS SUMMARY | 2022-11-12 23:21 | XMS REPORT | Continuity of Care Document ---
:1960 Author Organization [facility] t Address [address] [place] [address] Care Team Providers Name Role Phone KD RAYGOZA Primary Care Physician Unavailable Wallace Araujo Attending Clinician Unavailable Boris Szymanski Attending Clinician Unavailable JESSICA LEONARD Attending Clinician Unavailable Kd Pérez Attending Clinician Lab, Ang - Db Attending Clinician Unavailable KD RAYGOZA Attending Clinician Unavailable Doctor Unassigned, [place] Attending Clinician Unavailable Johnathon MARTINI Attending Clinician Unavailable Johnathon Saini Attending Clinician Johnathon MARTINI Admitting Clinician Unavailable Payers Payer Name Policy Type Policy Number Effective Date Expiration Date [facility] [id number] 2022 [employer]US 00:00:00 Problems Condition Condition Condition Status Onset Resolution Last Treating Co mments Source Name Details Category Date Date Treatment Clinician Date Anxiety Anxiety Disease Active Univers and [place] 1[place] Need for Need for Disease Active Unive rs hepatitis hepatitis -24 ity of C C 00:00: [place] screening screening 00 Medi peyman test test Branch Bipolar Bipolar Disease Active Univers affective affective 1-24 [place] disorder[place], [place] Medical episode episode Branch mixed, mixed, current current episode episode severity severity unspecifie unspecifie d d Esophageal Esophageal Disease Active U nivers dysphagia dysphagia 10-15 ity of 00:00: [place] [facility] Gastroesop Gastroesop Disease Active U nivers hageal hageal 10-15 ity of reflux reflux 00:: [place] disease disease 00 Medical without without Branch esophagiti esophagiti s s Encounter Encounter Disease Active Uni vers to to 10-15 [place] of establish establish [place] Wheezing Wheezing Disease Active Unive rs 10-15 ity of 00:00: Medical Branch HAYLEY HAYLEY Disease Active Univers (generaliz (generaliz 06-15 it y of ed anxiety ed [place] disorder[place] disorder[place] 00 [facility] Branch Drug use Drug use Disease Active Overview: Un tommie 06-15 Formattin ity of 00:00: g of this note Medical might be Branch different from the original. Xanax high doses -2mg TID. Tobacco Tobacco Problem Active Common use use Spirit disorder disorder - [facility] Panic Panic Problem Active Common disorder disorder Spirit [episodic [episodic - [facility] paroxysmal paroxysmal St anxiety] anxiety] [facility] Generalize Generalize Problem Active C ommon d anxiety d anxiety Spir it disorder disorder - [facility] Attention Attention Problem Active Com mon deficit deficit Spirit hyperactiv hyperactiv - [facility] ity ity St disorder disorder [facility] (ADHD), (ADHD), Medical combined combined Center type type History of History of Problem Active C ommon cannabis cannabis Spirit dependence dependence - [facility] /abuse /abuse [facility] Vitamin D Vitamin D Problem Active Com mon deficiency deficiency Sp [place] disease disease - [facility] Allergies, Adverse Reactions, Alerts Allergy Allergy Status Severity Reaction(s) Onset Inactive Treating Comm ents Source Name Type Date Date Clinician No Known DA Active U 2019-09 SJm Drug 10-14 Allergie 00:00: s 00 SULFUR DRUG Active Rash Univers INGREDI 06-15 ity of 00:00: [place] 00 Medical Branch Sulfur Propensi Active Rash blisters Univer s ty to 06-15 ity of adverse 00:00: [place] reaction 00 Medical s to Branch drug Sulfa Adverse Active Info Not Common Reaction Available Tutu Magana [facility] Social History Social Habit Start Date Stop Date Quantity Comments Source History of tobacco Cigarette Smoker University of use [facility] Exposure to 2022-10-05 2022-10-15 Not sure University SARS-CoV-2 (event) 00:00:00 08:26:[address] [facility] Alcohol intake 2022-10-15 2022-10-15 Current University of 00:00:00 00:00:00 non-drinker of [facility] alcohol Branch (finding) Cigarettes smoked 2012-06-15 2012-06-15 Univers ity of current (pack per 00:00:00 00:00:00 [facility] ) - Reported Branch Cigarette 2012-06-15 2012-06-15 University of pack-years 00:00:00 00:00:[address] [facility] Sex Ass[birth year] At [birth year] Universit y of 00:00:00 00:00:[address] [facility] Smoking Status Start Date Stop Date Source Smokes tobacco daily 2012-06-15 00:00:[address] [facility] Medications Ordered Filled Start Stop Current Ordering Indication Dosage Frequency Signature Comments Components Source Medication Medication Date Date Medication? Clinician (SIG) Name Name albuterol Yes [id number] 2{puff} Inhale 2 Univers 90 1-24 Puffs ity of mcg/actuati 00:00: every 6 Mio as on inhaler 00 (six) Medical hours as Branch needed for Wheezing or Shortness of Breath. albuterol Yes [id number] 2{puff} Inhale 2 Univers 90 1-24 Puffs ity of mcg/actuati 00:00: every 6 [place]io as on inhaler 00 (six) Medical hours as Branch needed for Wheezing or Shortness of Breath. albuterol Yes [id number] 2{puff} Inhale 2 Univers 90 1-24 Puffs ity of mcg/actuati 00:00: every 6 [place]io as on inhaler 00 (six) Medical hours as Branch needed for Wheezing or Shortness of Breath. albuterol Yes [id number] 2{puff} Inhale 2 Univers 90 1-24 Puffs ity of mcg/actuati 00:00: every 6 [place]io as on inhaler 00 (six) Medical hours as Branch needed for Wheezing or Shortness of Breath. albuterol Yes [id number] 2{puff} Inhale 2 Univers 90 1-24 Puffs ity of mcg/actuati 00:00: every 6 [place]io as on inhaler 00 (six) Medical hours as Branch needed for Wheezing or Shortness of Breath. albuterol Yes [id number] 2{puff} Inhale 2 Univers 90 1-24 Puffs ity of mcg/actuati 00:00: every 6 [place]io as on inhaler 00 (six) Medical hours as Branch needed for Wheezing or Shortness of Breath. albuterol Yes [id number] 2{puff} Inhale 2 Univers 90 1-24 Puffs ity of mcg/actuati 00:00: every 6 [place]io as on inhaler 00 (six) Medical hours as Branch needed for Wheezing or Shortness of Breath. naproxen 2021- No 500mg 500 mg, Univ ers (NAPROSYN) 12-20 Oral, ity of tablet 500 00:00: 23:01 ONCE, 1 [place]io as mg 00 :00 dose, On Medical Wed Branch 12/19/21 at 1900, Routine HYDROcodone 2021- No 1{tbl} 1 tablet, Univers -acetaminop 12-20 Oral, ity of hen (NORCO) 00:00: 23:01 [place]CE[place] 1 [place] 10-325 mg 00 :00 dose, On Medica l tablet 1 Wed Branch tablet 12/19/21 at 1900, Routine naproxen 0 Yes [id number] 500mg Take 1 Un tommie (NAPROSYN) 3-30 tablet by ity of 500 mg 00:00: mouth 2 [place] tablet 00 (two) Medical times Branch daily with meals. traMADoL 50 0 Yes [id number] 50mg Take 1 Univ ers mg tablet 3-30 tablet by ity o f 00:00: mouth [place] 00 every 6 Medical (six) Branch hours as needed for Pain (scale 4-6). Indication s: acute pain naproxen 2021-0 Yes [id number] 500mg Take 1 Un tommie (NAPROSYN) 3-30 tablet by ity of 500 mg 00:00: mouth 2 [place] tablet 00 (two) Medical times Branch daily with meals. traMADoL 50 2-0 Yes [id number] 50mg Take 1 Univ ers mg tablet 3-30 tablet by ity o f 00:00: mouth [place] 00 every 6 Medical (six) Branch hours as needed for Pain (scale 4-6). Indication s: acute pain naproxen 2022-0 Yes [id number] 500mg Take 1 Un tommie (NAPROSYN) 3-30 tablet by ity of 500 mg 00:00: mouth 2 [place] tablet 00 (two) Medical times Branch daily with meals. traMADoL 50 2021-0 Yes [id number] 50mg Take 1 Univ ers mg tablet 3-30 tablet by ity o f 00:00: mouth [place] 00 every 6 Medical (six) Branch hours as needed for Pain (scale 4-6). Indication s: acute pain naproxen 2021-0 Yes [id number] 500mg Take 1 Un tommie (NAPROSYN) 3-30 tablet by ity of 500 mg 00:00: mouth 2 [place] tablet 00 (two) Medical times Branch daily with meals. traMADoL 50 2021-0 Yes [id number] 50mg Take 1 Univ ers mg tablet 3-30 tablet by ity o f 00:00: mouth [place] 00 every 6 Medical (six) Branch hours as needed for Pain (scale 4-6). Indication s: acute pain naproxen 2-0 Yes [id number] 500mg Take 1 Un tommie (NAPROSYN) 3-30 tablet by ity of 500 mg 00:00: mouth 2 [place] tablet 00 (two) Medical times Branch daily with meals. traMADoL 50 2-0 Yes [id number] 50mg Take 1 Univ ers mg tablet 3-30 tablet by ity o f 00:00: mouth [place] 00 every 6 Medical (six) Branch hours as needed for Pain (scale 4-6). Indication s: acute pain naproxen 2022-0 Yes [id number] 500mg Take 1 Un tommie (NAPROSYN) 3-30 tablet by ity of 500 mg 00:00: mouth 2 [place] tablet 00 (two) Medical times Branch daily with meals. traMADoL 50 2-0 Yes [id number] 50mg Take 1 Univ ers mg tablet 3-30 tablet by ity o f 00:00: mouth [place] 00 every 6 Medical (six) Branch hours as needed for Pain (scale 4-6). Indication s: acute pain naproxen Yes [id number] 500mg Take 1 Un tommie (NAPROSYN) 3-30 tablet by ity of 500 mg 00:00: mouth 2 [place] tablet 00 (two) Medical times Branch daily with meals. traMADoL 50 Yes [id number] 50mg Take 1 Univ ers mg tablet 3-30 tablet by ity o f 00:00: mouth [place] 00 every 6 Medical (six) Branch hours as needed for Pain (scale 4-6). Indication s: acute pain naproxen Yes [id number] 500mg Take 1 Un tommie (NAPROSYN) 3-30 tablet by ity of 500 mg 00:00: mouth 2 [place] tablet 00 (two) Medical times Branch daily with meals. traMADoL 50 Yes [id number] 50mg Take 1 Univ ers mg tablet 3-30 tablet by ity o f 00:00: mouth [place] 00 every 6 Medical (six) Branch hours as needed for Pain (scale 4-6). Indication s: acute pain naproxen Yes [id number] 500mg Take 1 Un tommie (NAPROSYN) 3-30 [...] 7-07 Szymanski Spirit 00:00: - [facility] 00 [facility] Alprazolam Alprazolam 2018-09 Yes Boris 1 tablet Common 2-10 Szymanski Spirit 00:00: - [facility] 00 [facility] acetaminoph Yes 1{tbl} Take 1 Un tommie [...] as needed for Pain unrelieved by Tylenol. acetaminoph Yes 1{tbl} [...] as needed for Pain unrelieved by Tylenol. acetaminoph Yes 1{tbl} [...] as needed for Pain unrelieved by Tylenol. acetaminoph Yes 1{tbl} [...] as needed for Pain unrelieved by Tylenol. acetaminoph Yes 1{tbl} Take 1 Un tommie en-codeine 7-11 tablet by ity of (TYLENOL-CO 00:00: mouth [place] DEINE #3) 00 every 6 Medical 300-30 mg (six) Branch tablet hours as needed for Pain (scale 7-10). ibuprofen 2016-0 Yes 800mg Take 1 Unive rs (MOTRIN) [...] as needed for Pain unrelieved by Tylenol. acetaminoph Yes 1{tbl} [...] as needed for Pain (scale 7-10). ibuprofen 0 Yes 800mg Take 1 Unive rs (MOTRIN) 7-11 tablet by ity of 800 mg 00:00: mouth [place] tablet 00 every 6 Medical (six) Branch hours as needed for Pain unrelieved by Tylenol. acetaminoph Yes 1{tbl} Take 1 Un tommie en-codeine 7-11 tablet by ity of (TYLENOL-CO 00:00: mouth [place] DEINE #3) 00 every 6 Medical 300-30 mg (six) Branch tablet hours as needed for Pain (scale 7-10). ibuprofen 2016-0 Yes 800mg Take 1 Unive rs (MOTRIN) 7-11 tablet by ity of 800 mg 00:00: mouth [place] tablet 00 every 6 Medical (six) Branch hours as needed for Pain (scale 4-6) or Pain unrelieved by Tylenol. acetaminoph 2015- Yes 1{tbl} Take 1 Un tommie en-codeine 7-11 tablet by ity of (TYLENOL-CO 00:00: mouth [place] DEINE #3) 00 every 4 Medical 300-30 mg (four) Branch tablet hours as needed for Pain (scale 7-10). ibuprofen 0 Yes 800mg Take 1 Unive rs (MOTRIN) 7-11 tablet by ity of 800 mg 00:00: mouth [place] tablet 00 every 6 Medical (six) Branch hours as needed for Pain unrelieved by Tylenol. acetaminoph Yes 1{tbl} [...] as needed for Pain (scale 7-10). ibuprofen 0 Yes 800mg Take 1 Unive rs (MOTRIN) 7-11 tablet by ity of 800 mg 00:00: mouth [place] tablet 00 every 6 Medical (six) Branch hours as needed for Pain unrelieved by Tylenol. acetaminoph Yes 1{tbl} [...] Time Observation Value Comments Source Systolic blood 2022-10-15 14:46:00 116 mm[Hg] Univer sity [facility] Diastolic blood 2022-10-15 14:46:00 75 mm[facility]Hg] [facility] 2022-10-15 14:46:00 67 /min [facility] Body temperature 2022-10-15 14:46:00 36.72 [facility] Body height 2022-10-15 14:46:00 171.5 cm [facility] Body weight 2022-10-15 14:46:00 99.338 kg [facility] BMI 2022-10-15 14:46:00 33.79 kg/m2 [facility] Oxygen saturation in 2022-10-15 14:46:00 100 /min [facility] Arterial blood by [facility] Pulse oximetry Branch Systolic blood 2021-12-19 22:30:00 135 mm[Hg] Univer sity [facility] Diastolic blood 2021-12-19 22:30:00 89 mm[Hg] [facility] 2021-12-19 22:30:00 88 /min [facility] Body temperature 2021-12-19 22:30:00 36.83 [facility] Respiratory rate 2021-12-19 22:30:00 18 /min [facility] Body height 2021-12-19 22:30:00 170.2 cm [facility] Body weight 2021-12-19 22:30:00 104.327 kg [facility] BMI 2021-12-19 22:30:00 36.02 kg/m2 [facility] Oxygen saturation in 2021-12-19 22:30:00 100 /min [facility] Arterial blood by [facility] Pulse oximetry Branch Procedures Procedure Date / Time Performed Performing Clinician Pedro esha ASSIGNMENT OF BENEFITS 2022-10-15 14:25:09 Doctor Unassigned, No [facility] XR HIPS 2 VW LEFT 2021-12-19 23:08:53 Johnathon Martini [facility] NOTICE OF PRIVACY 2021-12-19 22:24:28 Doctor Unassigned, No [facility] CONSENT/REFUSAL FOR 2021-12-19 22:24:05 Doctor Unassigned, No [facility] DIAGNOSIS AND [facility] TREATMENT Encounters Start End Encounter Admission Attending Care Care Encounter Source Date/Time Date/Time Type Type Clinicians Facility Department ID 2021-10-17 Outpatient Wallace Araujo [facility] [id number] Common 12:15:29 [id number] 2021-10-17 Outpatient Wallace Araujo [facility] [id number] Common 12:13:54 [id number] 2021-10-17 Outpatient WESLEY Szymanski [facility] [id number] Common 11:17:02 [facility] [id number] [facility] 2020-08-14 Inpatient [facility] [id number] [facility] 01:19:00 40 2022-11-05 2022-11-05 Outpatient Mario LEONARD NHCLAUDIA [facility] [id number] Univers 14:00:00 14:00:00 JESSICA parker [facility] 2022-10-18 2022-10-18 Telephone Jaret [facility] [id number] Univers 00:00:00 00:00:00 Kd HEALTH [id number] it y of [place] [id number] Mio as TANA?BLEA [id number] [address] MEDICAL OFFICE [facility] 2022-10-16 2022-10-16 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 2022-10-16 2022-10-16 [facility] [id number] Univers 00:00:00 00:00:00 Kd [facility] [id number] [facility] [id number] Mio as TANA?BLEA [id number] [address] OFFICE [facility] 2022-10-15 2022-10-15 [facility] [id number] Univers 09:00:00 09:10:27 KD ity of [facility] 2022-10-15 2022-10-15 Office [facility] [id number] Univers 09:00:00 09:10:27 Visit Kd [facility] [id number] it y of [place] [id number] Mio as TANA?BLEA [id number] [address] OFFICE [facility] 2022-10-15 2022-10-15 Orders Doctor BARTON [id number] Univers 00:00:00 00:00:00 Only Unassigned, ALIA [id number] ity of [place] [facility] [id number] Mio as [id number] [facility] 009 Branch 2021-12-19 2021-12-19 Emergency X Johnathon MARTINI [facility] ERT [id number] Univers 17:31:00 19:54:[address] [facility] 2021-12-19 2021-12-19 Emergency Johnathon Martini [facility] [id number] Univers 17:31:00 19:54:00 Eva BROWN [id number] i ty jason [facility] [id number] [facility] [id number] [facility] 084 Branch 2020-08-14 2020-08-[address] [facility] [id number] [facility] 01:19:00 01:19:00 40 2020-03-28 2020-03-28 Out[facility] [id number] Common 09:08:00 09:08:[address] [facility] 2020-03-08 2020-03-08 Outpatient [facility] [id number] Common 08:04:00 08:04:[address] [facility] 2020-02-28 2020-02-28 Outpatient [facility] [id number] Common 10:00:00 10:00:[address] [facility] 2019-12-29 2019-12-29 Outpatient [facility] [id number] Common 11:00:00 11:00:[address] [facility] 2019-11-30 2019-11-30 Outpatient [facility] [id number] Common 11:32:00 11:32:[address] [facility] 2019-11-30 2019-11-30 Outpatient [facility] [id number] Common 08:30:00 08:30:[address] [facility] 2019-11-01 2019-11-01 Outpatient [facility] [id number] Common 10:30:00 10:30:[address] [facility] 2019-09-30 2019-09-30 [facility] [id number] Common 08:30:00 08:30:[address] [facility] 2019-08-31 2019-08-31 Outpatient [facility] [id number] Common 10:00:00 10:00:[address] [facility] Results Test Description Test Time Test Comments Results Result Comments Source Sars-CoV-2/FLU A/B RSV PCR 2020-08-14 03:25:00 Test Item Value Reference Range Interpretation Comme nts Sars-CoV-2/FLU A/B RSV PCR (test code = For use under Emergency Use SARSFLURSVPCR) Authorization (EUA) only. Sars-CoV-2/FLU A/B RSV PCR (test code = ical-devices/emergen wg-ult-phrrclrvgerl SARSFLURSVPCR1.1) ns. Influenza A PCR: (test code = Influenza Negative by Nucleic Acid Amplification A PCR:) Influenza B PCR: (test code = Influenza Negative by Nucleic Acid Amplification B PCR:) RSV PCR Result: (test code = RSV PCR Negative by Nucleic Acid Ampli fication Result:) SARS-CoV-2 PCR Result: (test code = Negative by Nucleic Acid Amplif ication SARS-CoV-2 PCR Result:) UC, Urine [id number] 03:07:00 Test Item Value Reference Range Interpretation Comments UC, Urine Culture NO GROWTH AFTER 24 HOURS (test code = UC) UC, Urine Culture Growth too young to (test code = UC) evaluate UC, Urine Culture Gardnerella vaginalis (test code = UC1.2) Dyer Count (test >100,000 code = Dyer Count) Complete Blood Count Auto [id number] 02:31:00 Test Item Value Reference Range Interpretation Comments White Blood Count (test code = 11.7 x10 3/uL 4.4-10.5 H WBCT) Red Blood Count (test code = 4.21 x10 6/uL 3.75-5.20 N RBC) Hemoglobin (test code = HGBT) 13.5 g/dL 12.2-14.8 N Hematocrit (test code = HCTT) 41.4 % 36.5-44.4 N Mean Corpuscular Volume (test 98.30 fL 80.00-100.00 N code = MCV) Mean Corpuscular Hemoglobin 32.1 pg 27.0-32.5 N (test code = MCH) Mean Corpuscular HGB Conc 32.60 g/dL 32.00-37.50 N (test code = MCHC) RDW Coefficient of Variation 13.0 % 11.5-14.5 N (test code = RDWCV) Platelet Count (test code = 152.0 x10 3/uL 140.0-440.0 N PLTT) Mean Platelet Volume (test 12.0 fL code = MPV) Immature Granulocytes % (Auto) 0.5 % 0.0-5.0 N (test code = IMMGRAN%) Neutrophils % (Auto) (test 85.4 % 36.0-70.0 H code = NE%) Lymphocytes % (Auto) (test 6.6 % 12.0-44.0 L code = LY%) Monocytes % (Auto) (test code 6.8 % 0.0-11.0 N = MO%) Eosinophils % (Auto) (test 0.4 % 0.0-7.0 N code = EO%) Basophils % (Auto) (test code 0.3 % 0.0-2.0 N = BA%) Immature Granulocytes # (Auto) 0.06 x10 3/uL (test code = IMMGRAN#) Neutrophils # (Auto) (test 10.0 x10 3/uL 1.6-7.4 H code = NE#) Lymphocytes # (Auto) (test 0.77 x10 3/uL 0.50-4.60 N code = LY#) Monocytes # (Auto) (test code 0.80 x10 3/uL 0.00-1.20 N = MO#) Eosinophils # (Auto) (test 0.05 x10 3/uL 0.00-0.74 N code = EO#) Basophils # (Auto) (test code 0.03 x10 3/uL 0.00-0.21 N = BA#) nRBC Abs (test code = NRBCA) 0 nRBC Pct (test code = NRBCP) 0 % UA, Urinalysis Rflx Cult/[id number] 02:31:00 Test Item Value Reference Range Interpretation Comments Color,Urine (test code = Dark-Yellow Yellow UCOL) Clarity,Urine (test code = Slightly-Cloudy Clear A UCLAR) PH,Urine (test code = UPH.XX) 5.5 5.5-8.5 Specific [place],Urine (test >= 1.030 1.005-1.030 N code = USG) Blood,Urine (test code = Small cells/uL Negative A UBLD) Protein,Urine (test code = 100 mg/dL Negative A UPRO) Glucose,Urine (UA) (test code Negative mg/dL Negative = UGLU) Ketones,Urine (test code = 40 mg/dL Negative A UKET) Nitrate,Urine (test code = Negative Negative UNIT) Bilirubin,Urine (test code = Moderate mg/dL Negative A UBIL) Urobilinogen,Urine (test code 0.2 mg/dL Negative = UURO) Leukocyte Esterase,Urine Small cells/uL Negative A (test code = ULEU) Ictotest,[id number] 02:31:00 Test Item Value Reference Range Interpretation Comments Ictotest,Urine (test code = Confirm Positive Confirm Neg UICTO) Urine [id number] 02:31:00 Test Item Value Reference Range Interpretation Comments RBC,Urine (test code = URBC.XX) 6-10 /HPF None Seen A WBC,Urine (test code = UWBC.XX) 6-10 /HPF None Seen A Squamous Epithelial Cell,Urine 0-2 /HPF None Seen (test code = USQEPI.XX) Bacteria,Urine (test code = UBACT) Few /HPF None Seen A Hyaline Casts,Urine (test code = 1-5 None Seen A UHYALC.XX) Drug Screen,[id number] 02:31:00 Test Item Value Reference Range Interpretation Comments PCP Phencyclidine Negative Negative result to follow Screen,Urine (test code = PCPU) Amphetamine Positive Negative A Confirmation by GC/MS Screen,Urine (test code not routinely = AMPU) performed. Ifconfirmation is required, an or cookie must be placed. Methadone Screen,Urine Negative Negative (test code = METHU) Opiate Screen,Urine Negative Negative (test code = UOPIS) Barbituates Negative Negative Screen,Urine (test code = BARBU) Benzodiazepines Negative Negative Screen,Urine (test code = UBENZS) Cocaine Screen,Urine Negative Negative (test code = UCOCS) Cannabinoid Positive Negative A Screen,Urine (test code = UTHCS) Propoxyphene Screen, Negative Negative Urine (test code = UPROP) Comprehensive Metabolic [id number] 02:31:00 Test Item Value Reference Range Interpretation Comments SODIUM (test code = NA) 140.0 mmol/L 136.0-145.0 N Potassium,K (test code = K) 3.7 mmol/L 3.0-5.1 N Chloride (test code = CL) 108 mmol/L 98-107 H Carbon Dioxide (test code = CO2) 20 mmol/L 20-31 N Anion Gap (test code = GAP) 12 mmol/L 5-15 N Blood Urea Nitrogen (test code = 19 mg/dL 9-23 N BUN) Creatinine (test code = CREATT) 1.32 mg/dL 0.55-1.02 H Creatinine Clr Calc Pharmacy 58.63 mL/min (test code = CRCLPHA) Estimated GFR ( Sheri 51 mL/min/1.73m2 (test code = EGFRAA) Estimated GFR (Non Afr Sheri 44 mL/min/1.73m2 (test code = EGFRNAA) BUN/Creatinine Ratio (test code 14 ratio 10-20 N = BCRATIO) Glucose (test code = GLU) 90 mg/dL 74-106 N Osmolality,Calculated (test code 291.7 = OSMOC) Calcium (test code = CA) 9.2 mg/dL 8.3-10.6 N Bilirubin,Total (test code = 1.2 mg/dL 0.2-1.1 H BILIT) Aspartate Amino Transferase 61 U/L 0-34 H (test code = AST) Alanine Aminotransferase (test 36 U/L 10-49 N code = ALT) Total Protein (test code = TP) 7.0 g/dL 5.7-8.2 N Albumin Level (test code = ALB) 4.7 g/dL 3.2-4.8 N Globulin (test code = GLOB) 2.3 mg/dL 2.3-3.5 N Albumin/Globulin Ratio (test 2.0 ratio 0.8-2.0 N code = AGRATIO) Alkaline Phosphatase (test code 84 U/L 46-116 N = ALP) Ethanol [id number] 02:31:00 Test Item Value Reference Range Interpretation Comments Ethanol (test code = ETOH) < 3 mg/dL
[2022-11-12] MEDS ORDERED: MORPHINE 4 MG/ML SYR ONE (23:54)
[2022-11-12] MEDS ORDERED: ONDANSETRON 4 MG/2 ML VIAL ONE (23:54)
[2022-11-12] MEDS ORDERED: NA CHLORIDE 0.9% 500 ML ONE (23:54)
[2022-11-12 23:55] LABS: Absolute Lymphocytes (CBC) 2.1 K/uL (0.7-4.9); Hematocrit 39.5 % (36.0-45.0); Lymphocytes % 29.4 % (15.3-44.8); MCV 95.5 fL (80-100); MPV 8.9 fL (7.6-11.3); RBC Red Blood Cell Count 4.14 M/uL (3.86-4.86)
[2022-11-12] MEDS ORDERED: FAMOTIDINE 20 MG/2 ML VIAL IV ONE (23:55)
[2022-11-13 00:10] LABS: Albumin 3.5 g/dL (3.4-5.0); Bilirubin Total 0.6 mg/dL (0.2-1.0); Potassium 3.6 mmol/L (3.5-5.1); Protein, Total 7.6 g/dL (6.4-8.2)
[2022-11-13 01:47] LABS: Urine Blood Negative (Negative); Urine Glucose Negative (Negative); Urine Protein Negative (Negative); Urine Specific Gravity 1.015 (1.005-1.030); Urine pH 5.5 (5.0-7.0)
[2022-11-13 02:22] LABS: Urine Bacteria None Seen /HPF (<20); Urine Mucus Slight /HPF (None Seen); Urine RBC <5 /HPF (None Seen)
--- NOTE | 2022-11-13 02:31 | ER ---
Nurse's Notes [facility] Name: Ana Anne Age: 62 yrs Sex: Female : 1960 Arrival Date: 11/12/2022 Time: 23:21 Bed 2 Private MD: Diagnosis: Other cirrhosis of liver;Abnormal results of liver function studies;Abdominal pain, unspecified Presentation: 11/12 23:25 Chief complaint: Patient states: RUQ pain of 8 that radiates to back with bloating pf1 sensation and belching, worse today at 1630 with nausea and vomiting x 1 episode tonight. Patient stated had this same abdominal pain for 2 years and has a GI appointment schedule in Jan, 2023. Coronavirus screen: Vaccine status: Patient reports receiving the 1st dose of the Covid vaccine. Client denies travel out of the [place] in the last 14 days. Client presents with at least one sign or symptom that may indicate coronavirus-19. Ebola Screen: Patient negative for fever greater than or equal to 101.5 degrees Fahrenheit, and additional compatible Ebola Virus Disease symptoms. Initial Sepsis Screen: Does the patient meet any 2 criteria? No. Patient's initial sepsis screen is negative. Does the patient have a suspected source of infection? No. Patient's initial sepsis screen is negative. Risk Assessment: Do you want to hurt yourself or someone else? Patient reports no desire to harm self or others. 23:25 Method Of Arrival: Ambulatory pf1 23:25 Acuity: ISABEL 3 pf1 Historical: - Allergies: 23:32 Sulfa (Sulfonamide Antibiotics); pf1 - Immunization history:: Adult Immunizations not up to date. - Social history:: Smoking status: Patient reports the use of cigarette tobacco products, smokes one pack cigarettes per day. Screenin:54 [facility] ED Fall Risk Assessment (Adult) History of falling in the last 3 months, tw5 including since admission. Abuse screen: Denies threats or abuse. Denies injuries from another. Nutritional screening: No deficits noted. Tuberculosis screening: No symptoms or risk factors identified. Assessment: 23:54 General: Reports "I have been having this pain on my right side for over a year now, tw5 but today it just came to a head. I have been sleeping on my left side because my right side hurts, but now I cannot even do that.". Pain: Complains of pain in anterior aspect of right lateral abdomen Pain at worst was 8 out of 10 on a pain scale. Pain: Quality of pain is described as pressure. 11/13 00:02 General: Reports "I just feel like I have been pumped full of air, and like I cannot tw5 get a good breath.". Vital Signs: 11/12 23:25 BP 161 / 74; Pulse 71; Resp 18; Temp 97.4; Pulse Ox 98% on R/A; Weight 100.24 kg; pf1 Height 5 ft. 7 in. (170.18 cm); Pain 8/10; 11/13 00:02 BP 146 / 86; Pulse 63; Resp 14; Pulse Ox 99% on R/A; tw5 02:56 BP 118 / 67; Pulse 64; Resp 18; Temp 98.3; Pulse Ox 100% ; Pain 4/10; pf1 11/12 23:25 Body Mass Index 34.61 (100.24 kg, 170.18 cm) pf1 ED Course: 11/12 23:21 Patient arrived in ED. ja2 23:32 Vinod Gonzales PA is PHCP. cp 23:32 Darron Gomez MD is Attending Physician. cp 23:32 Triage completed. pf1 23:48 Sally Allen is Primary Nurse. tw5 23:49 Inserted saline lock: 20 gauge in right antecubital area, using aseptic technique. ls5 Blood collected. 23:51 CBC with Diff Sent. ls5 23:51 CMP Sent. ls5 23:51 Lipase Sent. ls5 23:54 Patient has correct armband on for positive identification. Bed in low position. Call tw5 light in reach. Side rails up X 1. Client placed on continuous cardiac and pulse oximetry monitoring. NIBP monitoring applied. Door closed. Noise minimized. Moved to private room. Warm blanket given. Verbal reassurance given. 11/13 02:29 Alessandro Mendoza MD is Referral Physician. cp 02:56 No provider procedures requiring assistance completed. IV discontinued, intact, pf1 bleeding controlled, No redness/swelling at site. Pressure dressing applied. Administered Medications: 11/12 23:59 Drug: NS 0.9% 500 ml Route: IV; Rate: 500 ml/hr; Site: right antecubital; tw5 11/13 00:30 Follow up: IV Status: Completed infusion; IV Intake: 500ml pf1 01:00 Follow up: Response: No adverse reaction pf1 00:00 Drug: Pepcid (famotidine) 20 mg Route: IVP; Site: left antecubital; tw5 01:00 Follow up: Response: No adverse reaction; Marked relief of symptoms pf1 00:01 Drug: Zofran (Ondansetron) 4 mg Route: IVP; Site: right antecubital; tw5 01:00 Follow up: Response: No adverse reaction; Marked relief of symptoms pf1 00:02 Drug: morphine 4 mg Route: IVP; Infused Over: 4 mins; Site: right antecubital; tw5 01:00 Follow up: Response: No adverse reaction; Marked relief of symptoms; Pain is decreased; pf1 RASS: Alert and Calm (0) Medication: 11/12 23:54 VIS not applicable for this client. Intake: 11/13 00:30 IV: 500ml; Total: 500ml. pf1 Outcome: 02:30 Discharge ordered by . wolf 02:58 Patient left the ED. pf1 Signatures: Vinod Gonzales PA PA cp Alexander, Jessica ja2 Wood, Tiffany tw5 Tanvi botello, SURENDRA RN pf1 Parish Shah ls5
--- NOTE | 2022-11-13 02:31 | EDPHYS ---
Physician Documentation [facility] Name: Ana Anne Age: 62 yrs Sex: Female : 1960 Arrival Date: 11/12/2022 Time: 23:21 Bed 2 Private MD: ED Physician Darron Gomez HPI: 11/12 23:45 This 62 yrs old Female presents to ER via Ambulatory with complaints of Flank Pain, cp Abdominal Swelling. 23:45 The patient complains of pain in the anterior aspect of right lateral abdomen. The pain cp does not radiate. Onset: The symptoms/episode began/occurred 2 year(s) ago, and became worse today. Associated signs and symptoms: Pertinent positives: nausea, belching, Pertinent negatives: diarrhea, dysuria, fever, urinary frequency, headache, pain radiating to the lower extremities, vomiting. Severity of pain: in the emergency department the pain is unchanged despite home interventions. Historical: - Allergies: 23:32 Sulfa (Sulfonamide Antibiotics); pf1 - Immunization history:: Adult Immunizations not up to date. - Social history:: Smoking status: Patient reports the use of cigarette tobacco products, smokes one pack cigarettes per day. ROS: 23:50 Constitutional: Negative for body aches, chills, fever, poor PO intake. cp 23:50 Eyes: Negative for injury, pain, redness, and discharge. cp 23:50 ENT: Negative for drainage from ear(s), ear pain, sore throat, difficulty swallowing, difficulty handling secretions. 23:50 Cardiovascular: Negative for chest pain, edema, palpitations. 23:50 Respiratory: Negative for cough, shortness of breath, wheezing. 23:50 Abdomen/GI: Positive for abdominal pain, nausea, of the anterior aspect of right lateral abdomen, Negative for vomiting, diarrhea, constipation, anorexia. 23:50 Back: Negative for injury or acute deformity, radiated pain. 23:50 Skin: Negative for cellulitis, rash. 23:50 Neuro: Negative for altered mental status, dizziness, headache, numbness, weakness. 23:50 All other systems are negative. Exam: 23:55 Constitutional: The patient appears in no acute distress, alert, awake, cp non-diaphoretic, non-toxic, well developed, well nourished, obese, uncomfortable. 23:55 Head/Face: Normocephalic, atraumatic. cp 23:55 Eyes: Periorbital structures: appear normal, Conjunctiva: normal, no exudate, no injection, Sclera: no appreciated abnormality, Lids and lashes: appear normal, bilaterally. 23:55 ENT: External ear(s): are unremarkable, Nose: is normal, Mouth: Lips: moist, Oral mucosa: pink and intact, moist, Posterior pharynx: is normal, airway is patent, no erythema, no exudate. 23:55 Chest/axilla: Inspection: normal. 23:55 Cardiovascular: Rate: normal, Rhythm: regular, Edema: is not appreciated, JVD: is not appreciated. 23:55 Respiratory: the patient does not display signs of respiratory distress, Respirations: normal, no use of accessory muscles, no retractions, labored breathing, is not present, Breath sounds: are clear throughout, no decreased breath sounds, no stridor, no wheezing. 23:55 Abdomen/GI: Inspection: obese Bowel sounds: active, all quadrants, Palpation: soft, in all quadrants, moderate abdominal tenderness, in the anterior aspect of right lateral abdomen, rebound tenderness, is not appreciated, voluntary guarding, is elicited in the anterior aspect of right lateral abdomen. 23:55 Back: CVA tenderness, is absent, vertebral tenderness, is not appreciated. 23:55 Skin: cellulitis, is not appreciated, no rash present. 23:55 Neuro: Orientation: to person, place \T\ time. Mentation: is normal, Motor: moves all fours, strength is normal, Gait: is steady. 23:59 ECG was reviewed by the Attending Physician. cp Vital Signs: 23:25 BP 161 / 74; Pulse 71; Resp 18; Temp 97.4; Pulse Ox 98% on R/A; Weight 100.24 kg; pf1 Height 5 ft. 7 in. (170.18 cm); Pain 8/10; 11/13 00:02 BP 146 / 86; Pulse 63; Resp 14; Pulse Ox 99% on R/A; tw5 02:56 BP 118 / 67; Pulse 64; Resp 18; Temp 98.3; Pulse Ox 100% ; Pain 4/10; pf1 11/12 23:25 Body Mass Index 34.61 (100.24 kg, 170.18 cm) pf1 MDM: 11/12 23:32 Patient medically screened. 11/13 00:00 Differential diagnosis: nephrolithiasis, pyelonephritis, pancreatitis, ruptured AAA, cp dissecting AAA, cholelithiasis, cholecystitis. 02:30 Data reviewed: vital signs, nurses notes. cp 02:30 I considered the following discharge prescriptions or medication management in the emergency department Medications were administered in the Emergency Department. See MAR. Counseling: I had a detailed discussion with the patient and/or guardian regarding: the historical points, exam findings, and any diagnostic results supporting the discharge/admit diagnosis, lab results, radiology results, the need for outpatient follow up, a mysql database administrator, to return to the emergency department if symptoms worsen or persist or if there are any questions or concerns that arise at home. Response to treatment: the patient's symptoms have markedly improved after treatment. Special discussion: Based on the patient's Hx, exam, and Dx evaluation, there is no indication for emergent surgery or inpatient Tx. It is understood by the patient/guardian that if the Sx's persist or worsen they need to return immediately for re-evaluation. 11/12 23:37 Order name: CBC with Diff 11/12 23:37 Order name: CMP 11/12 23:37 Order name: Lipase 11/12 23:57 Order name: CBC with Automated Diff; Complete Time: 01:20 EDMS 11/13 01:20 Interpretation: Normal except: PLT 112; EOSINOPHIL % 6.4. 11/13 00:10 Order name: Comprehensive Metabolic Panel; Complete Time: 01:20 EDMS 11/13 01:20 Interpretation: Normal except: CL 109; GLUC 123; GFR 64; AST 150; ALT 154; ALK 151; cp GLOB 4.1; A/G 0.9. 11/12 23:38 Order name: US Abdomen Limited: gallbladder 11/12 23:39 Order name: CT Abd/Pelvis - IV Contrast Only 11/13 00:10 Order name: Lipase; Complete Time: 01:20 EDMS 11/13 01:47 Order name: Urine Dipstick-Ancillary; Complete Time: 02:12 EDMS 11/13 02:12 Interpretation: Normal except: UESTR Trace. 11/13 02:23 Order name: Urine Microscopic Only EDDC 11/12 23:37 Order name: IV Saline Lock; Complete Time: 23:51 11/12 23:37 Order name: Labs collected and sent; Complete Time: 23:51 cp EC/21 23:59 Rate is 59 beats/min. Rhythm is regular. NM interval is normal. QRS interval is normal. cp QT interval is normal. T waves are Inverted in leads aVL, aVR. Interpreted by me. Reviewed by me. Administered Medications: 23:59 Drug: NS 0.9% 500 ml Route: IV; Rate: 500 ml/hr; Site: right antecubital; tw5 11/13 00:30 Follow up: IV Status: Completed infusion; IV Intake: 500ml pf1 01:00 Follow up: Response: No adverse reaction pf1 00:00 Drug: Pepcid (famotidine) 20 mg Route: IVP; Site: left antecubital; tw5 01:00 Follow up: Response: No adverse reaction; Marked relief of symptoms pf1 00:01 Drug: Zofran (Ondansetron) 4 mg Route: IVP; Site: right antecubital; tw5 01:00 Follow up: Response: No adverse reaction; Marked relief of symptoms pf1 00:02 Drug: morphine 4 mg Route: IVP; Infused Over: 4 mins; Site: right antecubital; tw5 01:00 Follow up: Response: No adverse reaction; Marked relief of symptoms; Pain is decreased; pf1 RASS: Alert and Calm (0) Disposition: 04:35 Co-signature as Attending Physician, Darron Gomez MD I agree with the assessment and kdr plan of care. Disposition Summary: 11/13/22 02:30 Discharge Ordered Location: Home cp Problem: an ongoing problem cp Symptoms: have improved cp Condition: Stable cp Diagnosis - Other cirrhosis of liver cp - Abnormal results of liver function studies cp - Abdominal pain, unspecified cp Followup: cp - With: Alessandro Mendoza MD - When: 2 - 3 days - Reason: Recheck today's complaints Discharge Instructions: - Discharge Summary Sheet cp - Abdominal Pain, Adult cp - Cirrhosis cp Forms: - Medication Reconciliation Form cp - Thank You Letter cp - Antibiotic Education cp - Prescription Opioid Use cp Prescriptions: - dicyclomine 20 mg Oral Tablet - take 1 tablet by ORAL route 4 times per day; 20 tablet; Refills: 0, Product cp Selection Permitted - Zofran 4 mg Oral Tablet - take 1 tablet by ORAL route every 12 hours As needed; 20 tablet; Refills: 0, cp Product Selection Permitted Signatures: Dispatcher [employer] EDMS Darron Gomez MD MD kdr Vinod Gonzales PA PA cp Wood, Tiffany tw5 Tanvi botello RN RN pf1 Corrections: (The following items were deleted from the chart) 11/12 23:52 23:38 Urine Microscopic+U.LAB.BRZ ordered. EDMS EDMS
[2022-11-13 03:59] VITALS: BP 118/67; TEMP 98.3; O2SAT 100
--- NOTE | 2022-11-13 21:04 | RAD REPORT ---
EXAM DESCRIPTION: CT - Abdomen Pelvis W Contrast - 11/13/2022 6:54 am CLINICAL HISTORY: FLANK PAIN TECHNIQUE: Axial computed tomography images of the abdomen and pelvis with intravenous contrast. S agittal and coronal reformatted images were created and reviewed. This CT exam was performed using one or more of the following dose reduction techniques: automated exposure control, adjustment of t he mA and/or kV according to patient size, and/or use of iterative reconstruction technique. COMPARISON: No relevant prior studies available. FINDINGS: Lung bases: Unremarkable. No mass. No consolidation. ABDOMEN: Liver: The liver is enlarged with subtle surface contour nodularity suggestive of cirrhosis. Ther e is mild periportal edema. Gallbladder and bile ducts: The gallbladder is mildly distended. No calcified gallstones. No du ctal dilation. Pancreas: Unremarkable. No mass. No ductal dilation. Spleen: The spleen is enlarged. Adrenals: Unremarkable. No mass. Kidneys and ureters: Lobulated renal contour bilaterally. Subcentimeter renal hypodensities bilat erally which are too small to characterize. No follow-up imaging is necessary. No calculi. No h ydronephrosis. Stomach and bowel: Unremarkable. No obstruction. No mucosal thickening. PELVIS: Appendix: The appendix is not definitively visualized. No findings to suggest acute appendicitis. Bladder: Unremarkable. No mass. Reproductive: Unremarkable as visualized. ABDOMEN and PELVIS: Intraperitoneal space: Unremarkable. No free air. No significant fluid collection. Bones/joints: Multilevel spondylosis. No acute fracture. No dislocation. Soft tissues: Unremarkable. Vasculature: Mild to moderate atherosclerotic disease. No abdominal aortic aneurysm. Lymph nodes: Unremarkable. No enlarged lymph nodes. IMPRESSION: 1. No renal, ureteral or bladder calculi. No evidence for renal obstruction. 2. Other findings as above. Electronically signed by: Jennifer Hopkins MD 11/13/2022 2:01 AM TAX SERVICES MANAGER Due to temporary technical issues with the PACS/Fluency reporting system, reports are being signed by the in house radiologists without review as a courtesy to insure prompt reporting. The interpreting radiologist is fully responsible for the content of the report.
--- NOTE | 2022-11-13 21:06 | RAD REPORT ---
EXAM DESCRIPTION: US - Abdomen Exam Limited - 11/13/2022 12:20 am CLINICAL HISTORY: The patient is 62 years old and is Female; right flank pain TECHNIQUE: Real-time ultrasound of the right upper quadrant with image documentation. COMPARISON: No relevant prior studies available. FINDINGS: GALLBLADDER: Unremarkable. No gallstones. Negative sonographic Dejesus's sign. COMMON BILE DUCT: Unremarkable as visualized. No stones. No dilation. IMPRESSION: Normal gallbladder ultrasound. Electronically signed by: Kenya Mehta MD 11/13/2022 12:42 AM LOCK ASSEMBLER Due to temporary technical issues with the PACS/Fluency reporting system, reports are being signed by the in house radiologists without review as a courtesy to insure prompt reporting. The interpreting radiologist is fully responsible for the content of the report.
--- NOTE | 2022-11-14 16:33 | EKG ---
Test Date: 2022-11-12 Test Time: 23:57:24 Mechanical Technician: DEDRICK MEASUREMENT RESULTS: Intervals: Rate: 59 IL: 190 QRSD: 78 QT: 422 QTc: 417 [place]: P: 59 IL: 190 QRS: 73 T: 73 INTERPRETIVE STATEMENTS: Sinus bradycardia Otherwise normal ECG Compared to ECG 08/13/2020 16:11:03 Sinus rhythm no longer present Electronically Signed On 11-14-22 16:29:51 TOE FORMER by Beau Vazquez
== END 2022-11-13 02:58 | disposition home or self-care (01) ==
LOC: ER 23:16
DX: K74.69 Other cirrhosis of liver (principal); R94.5 Abnormal results of liver function studies; F17.210 Nicotine dependence, cigarettes, uncomplicated; Z88.2 Allergy status to sulfonamides
CPT/HCPCS: 85025; 36415; 83690; 80053; 74177; 76705; Q9967; J7040; J2405; 81003; 81015; 93005; 99283

== ENCOUNTER 2023-03-05 11:33 | Emergency (ER) | payer OTHER ==
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
[2023-03-05] MEDS ORDERED: DIAZEPAM 5 MG TABLET ONE (11:53)
[2023-03-05] MEDS ORDERED: KETOROLAC 30 MG/ML INJ ONE (11:54)
[2023-03-05 12:14] VITALS: BP 134/94; TEMP 98.4; O2SAT 99
[2023-03-05] MEDS ORDERED: ACETAMINOPHEN 500 MG TAB ONE (12:30)
[2023-03-05] MEDS ORDERED: Levofloxacin500mg IV 500 MG/100 ML BAG IV ONE (12:30)
== END 2023-03-05 12:02 | disposition home or self-care (01) ==
LOC: ER 11:33
DX: M54.12 Radiculopathy, cervical region (principal); V49.49XA Driver injured in collision with other motor vehicles in traffic accident, initial encounter; I10 Essential (primary) hypertension; F17.210 Nicotine dependence, cigarettes, uncomplicated; Z88.2 Allergy status to sulfonamides
CPT/HCPCS: 96372; 99284

== ENCOUNTER 2023-03-15 19:58 | Emergency (ER) | payer OTHER ==
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
--- NOTE | 2023-03-15 21:00 | RAD REPORT ---
EXAM DESCRIPTION: Jose Xavier (2 Views)03/15/2023 8:50 pm CLINICAL HISTORY: Cough COMPARISON: 2019 FINDINGS: The lungs appear clear of acute infiltrate. The heart is normal size IMPRESSION: No acute abnormalities displayed
[2023-03-15 21:13] LABS: SARS-CoV-2 Antigen Rapid Res Negative (Negative)
--- NOTE | 2023-03-15 21:51 | EDPHYS ---
Physician Documentation [facility] Name: Ana Anne Age: 63 yrs Sex: Female : 1960 Arrival Date: 03/15/2023 Time: 19:58 Bed DIS3 Private MD: ED Physician Dangelo Weinstein HPI: 03/15 21:00 This 63 yrs old Female presents to ER via Ambulatory with complaints of Chest cp Congestion. Historical: - Immunization history:: Adult Immunizations up to date. - Social history:: Smoking status: Patient reports the use of cigarette tobacco products, smokes one pack cigarettes per day. ROS: 21:05 Constitutional: Positive for body aches, Negative for fever, poor PO intake. cp 21:05 Eyes: Negative for injury, pain, redness, and discharge. cp 21:05 ENT: Positive for sore throat, Negative for drainage from ear(s), ear pain, difficulty swallowing, difficulty handling secretions. 21:05 Cardiovascular: Negative for chest pain, edema, palpitations. 21:05 Respiratory: Positive for cough, with no reported sputum, shortness of breath, on exertion. 21:05 Abdomen/GI: Positive for nausea, Negative for abdominal pain, vomiting, diarrhea, constipation. 21:05 : Negative for urinary symptoms. 21:05 Neuro: Negative for altered mental status, dizziness, headache, syncope, weakness. 21:05 All other systems are negative. Vital Signs: 20:30 BP 118 / 54; Pulse 82; Resp 19; Temp 98.2; Pulse Ox 95% on R/A; Weight 96.16 kg; os MDM: 20:36 Patient medically screened. 03/15 20:22 Order name: SARS RAPID; Complete Time: 21:42 cp 03/15 21:42 Interpretation: Reviewed. 03/15 20:22 Order name: Strep cp 03/15 20:22 Order name: Influenza Screen (a \T\ B); Complete Time: 21:42 cp 03/15 21:42 Interpretation: Reviewed. 03/15 21:18 Order name: Throat Culture EDNV 03/15 20:22 Order name: XRAY Chest Pa And Lat (2 Views); Complete Time: 21:42 cp 03/15 21:42 Interpretation: Report reviewed. cp Administered Medications: 22:03 Drug: Tussionex Pennkinetic ER PO Suspension 5 ml Route: PO; jb4 Disposition: 03/16 05:04 Co-signature as Attending Physician, Dangelo Weinstein DO I was immediately available on-site ms3 in the Emergency Department for consultation in the care of the patient. 21:59 Co-signature as Attending Physician, Dangelo Weinstein DO. ms3 Disposition Summary: 03/15/23 21:51 Discharge Ordered Location: Home cp Problem: new cp Symptoms: have improved cp Condition: Stable cp Diagnosis - Cough cp Followup: cp - With: Private Physician - When: 2 - 3 days - Reason: Worsening of condition Discharge Instructions: - Discharge Summary Sheet cp - Cough, Adult cp Forms: - Medication Reconciliation Form cp - Thank You Letter cp - Antibiotic Education cp - Prescription Opioid Use cp Prescriptions: - Bromfed DM 2-30-10 mg/5 mL Oral syrup - administer 10 milliliter by ORAL route every 6 hours as needed for cold cp symptoms; 180 milliliter; Refills: 0, Product Selection Permitted - albuterol sulfate 90 mcg/actuation Inhalation HFA Aerosol Inhaler - inhale 2 puff by INHALATION route every 6 hours administer via ventilator; 1 cp unit; Refills: 0, Product Selection Permitted - Ibuprofen 800 mg Oral Tablet - take 1 tablet by ORAL route every 8 hours As needed take with food; 30 tablet; cp Refills: 0, Product Selection Permitted - Zithromax Z-Alfonso 250 mg Oral Tablet - take 1 tablet by ORAL route as directed for 5 days Day 1 - take two (2) tablets cp one time. Day 2, 3, 4 , 5 take one (1) tablet once daily.; 6 tablet; Refills: 0, Product Selection Permitted Addendum: 22:15 Addendum: HPI: Patient is a 63 y/o female who presents to ED with c/o non-productive c p cough, congestion, times 3 days. Patient reports headache and sore throat due to cough. Denies fever. No chest pain. C/o shortness of breath. Addendum: . Signatures: Dispatcher [employer] EDMS Vinod Gonzales PA PA cp Bryson, James, SURENDRA RN jb4 Dangelo Weinstein DO DO ms3 Desiree Ramos RN RN os Corrections: (The following items were deleted from the chart) 03/15 20:33 20:33 PMHx: Hypertension; os os 20:33 20:33 PMHx: Anxiety; os os 20:33 20:33 PMHx: Bipolar disorder; os os : 20:33 PMHx: OVERDOSE - SUICIDE ATTEMPT; os os 20: 20:33 PMHx: intermittant hypertension; os os 03/16 21:43 21:42 This 63 yrs old Female presents to ER via Ambulatory with complaints of Chest cp Congestion. cp 21:59 21:58 Chart complete. ms3 ms3
--- NOTE | 2023-03-15 21:51 | ER ---
Nurse's Notes [facility] Name: Ana Anne Age: 63 yrs Sex: Female : 1960 Arrival Date: 03/15/2023 Time: 19:58 Bed DIS3 Private MD: Diagnosis: Cough Presentation: 03/15 20:30 Chief complaint: Patient states: I had this horrible cough, congestion, and headache os for the past 3 days. Coronavirus screen: Vaccine status: Patient reports receiving the 2nd dose of the covid vaccine. 2 years ago. Ebola Screen: Patient negative for fever greater than or equal to 101.5 degrees Fahrenheit, and additional compatible Ebola Virus Disease symptoms. Initial Sepsis Screen: Does the patient meet any 2 criteria? No. Patient's initial sepsis screen is negative. Does the patient have a suspected source of infection? No. Patient's initial sepsis screen is negative. Risk Assessment: Do you want to hurt yourself or someone else? Patient reports no desire to harm self or others. Onset of symptoms was March 11, 2023. 20:30 Method Of Arrival: Ambulatory os 20:30 Acuity: ISABEL 4 os Historical: - Immunization history:: Adult Immunizations up to date. - Social history:: Smoking status: Patient reports the use of cigarette tobacco products, smokes one pack cigarettes per day. Screenin:04 [facility] ED Fall Risk Assessment (Adult) History of falling in the last 3 months, jb4 including since admission No falls in past 3 months (0 pts) Confusion or Disorientation No (0 pts) Score/Fall Risk Level 0 - 2 = Low Risk Oriented to surroundings, Maintained a safe environment. Abuse screen: Denies threats or abuse. Nutritional screening: No deficits noted. Tuberculosis screening: No symptoms or risk factors identified. Assessment: 22:04 General: Appears in no apparent distress. uncomfortable, Behavior is calm, cooperative, jb4 appropriate for age. Pain: Complains of pain in headache Pain does not radiate. Pain currently is 8 out of 10 on a pain scale. Neuro: Level of Consciousness is awake, alert, obeys commands, Oriented to person, place, time, situation. Cardiovascular: Patient's skin is warm and dry. Respiratory: Airway is patent Respiratory effort is even, unlabored, Respiratory pattern is regular, symmetrical. GI: No signs and/or symptoms were reported involving the gastrointestinal system. : No signs and/or symptoms were reported regarding the genitourinary system. EENT: No signs and/or symptoms were reported regarding the EENT system. Derm: Skin is intact, Skin is pink, warm \T\ dry. Musculoskeletal: Circulation, motion, and sensation intact. Range of motion: intact in all extremities. Vital Signs: 20:30 BP 118 / 54; Pulse 82; Resp 19; Temp 98.2; Pulse Ox 95% on R/A; Weight 96.16 kg; os ED Course: 20:03 Patient arrived in ED. es 20:05 Vinod Gonzales PA is PHCP. cp 20:05 Dangelo Weinstein DO is Attending Physician. cp 20:32 Triage completed. os 20:44 Influenza Screen (a \T\ B) Sent. rv1 20:44 Strep Sent. rv1 20:44 SARS RAPID Sent. rv1 20:52 XRAY Chest Pa And Lat (2 Views) In Process Unspecified. EDMS 22:04 No provider procedures requiring assistance completed. Patient did not have IV access jb4 during this emergency room visit. 22:04 Patient has correct armband on for positive identification. Bed in low position. Call jb4 light in reach. Side rails up X 1. Client placed on continuous cardiac and pulse oximetry monitoring. NIBP monitoring applied. Administered Medications: 22:03 Drug: Tussionex Pennkinetic ER PO Suspension 5 ml Route: PO; jb4 Medication: 22:04 VIS not applicable for this client. jb4 Outcome: 21:51 Discharge ordered by . cp 22:04 Discharged to home ambulatory. jb4 22:04 Condition: stable 22:04 Discharge instructions given to patient, Instructed on discharge instructions, follow up and referral plans. no drinking with medication, Demonstrated understanding of instructions, follow-up care, medications, Prescriptions given X 4. 22:06 Patient left the ED. jb4 Signatures: Dispatcher [employer] EDLou Banuelos Corey, PA PA cp Bryson, James, RN RN jb4 Brigitte Duran rv1 Desiree Ramos RN RN os Corrections: (The following items were deleted from the chart) 20:33 20:33 PMHx: Hypertension; os os 20:33 20:33 PMHx: Anxiety; os os 20:33 PMHx: Bipolar disorder; os os 20:33 PMHx: OVERDOSE - SUICIDE ATTEMPT; os os 20:33 PMHx: intermittant hypertension; os os
[2023-03-15] MEDS ORDERED: HYDROCODONE/CHLORPHEN 5 ML/OSYR ONE (22:07)
[2023-03-15 22:16] VITALS: BP 118/54; TEMP 98.2; O2SAT 95
== END 2023-03-15 22:06 | disposition home or self-care (01) ==
LOC: ER 19:58
DX: R05.9 Cough, unspecified (principal); R09.89 Other specified symptoms and signs involving the circulatory and respiratory systems; R11.0 Nausea; F17.210 Nicotine dependence, cigarettes, uncomplicated; Z20.822 Contact with and (suspected) exposure to COVID-19
CPT/HCPCS: 36415; 71046; 87070; 87081; 87804; 87811; 99284

== ENCOUNTER 2023-08-15 07:22 | Emergency (ER) | payer OTHER ==
--- OUTSIDE RECORDS SUMMARY | 2023-08-15 07:25 | XMS REPORT | Continuity of Care Document ---
:1960 Author Organization [facility] t Address [address] [place] [address] Care Team Providers Name Role Phone KD RAYGOZA Primary Care Physician Unavailable Wallace Araujo Attending Clinician Unavailable Boris Szymanski Attending Clinician Unavailable JESSICA LEONARD Attending Clinician Unavailable Kd Pérez Attending Clinician Lab, Ang - Db Attending Clinician Unavailable KD RAYGOZA Attending Clinician Unavailable Doctor Unassigned, [place] Attending Clinician Unavailable Johnathon MARTINI Attending Clinician Unavailable Johntahon Saini Attending Clinician Johnathon MARTINI Admitting Clinician Unavailable Payers Payer Name Policy Type Policy Number Effective Date Expiration Date [facility] [id number] 2022 STAR PLUS 00:00:00 Problems Condition Condition [...] nivers dysphagia dysphagia 10-15 ity of 00:: [place] [facility] Gastroesop Gastroesop Disease Active [...] [place] disorder[place] disorder[place] 00 [facility] Branch Drug use Drug use Disease Active Overview: Un tommie 06-15 Formattin ity of 00:00: g of this note Medical might be Branch different from the original. Xanax high doses -2mg TID. Tobacco Tobacco Problem Active Common use use Spirit disorder disorder - [facility] Panic Panic Problem Active Common disorder disorder Spirit [episodic [episodic - CH I paroxysmal paroxysmal St anxiety] anxiety] [facility] Generalize Generalize Problem Active C ommon d anxiety d anxiety Spir it disorder disorder - [facility] Attention Attention Problem Active Com mon deficit deficit Spirit hyperactiv hyperactiv - [facility] ity ity St disorder disorder [facility] (ADHD), (ADHD), Medical combined combined Center type type History of History of Problem Active C ommon cannabis cannabis Spirit dependence dependence - [facility] /abuse /abuse [facility] Vitamin D Vitamin D Problem Active Com mon deficiency deficiency Sp [place] disease disease - [facility] Allergies, Adverse Reactions, Alerts Allergy Allergy Status Severity Reaction(s) Onset Inactive Treating Comm ents Source Name Type Date Date Clinician No Known DA Active U 2019-09 [facility] Drug 10-14 Allergie 00:00: s 00 SULFUR DRUG Active Rash Univers INGREDI 06-15 ity of 00:00: [place] 00 [facility] Sulfur Propensi Active Rash blisters Univer s ty to 06-15 ity of adverse 00:00: [place] reaction 00 Medical s to Branch drug Sulfa Adverse Active Info Not Common Reaction Available Tutu Magana [facility] Social History Social Habit Start Date Stop Date Quantity Comments Source History of tobacco Cigarette Smoker University of use [facility] Exposure to 2022-10-05 2022-10-15 Not sure University SARS-CoV-2 (event) 00:00:00 08:26:00 [facility] Alcohol intake 2022-10-15 2022-10-15 Current University of 00:00:00 00:00:00 non-drinker of [facility] alcohol Branch (finding) Cigarettes smoked 2012-06-15 2012-06-15 Univers ity of current (pack per 00:00:00 00:00:00 [facility] ) - Reported Branch Cigarette 2012-06-15 2012-06-15 University of pack-years 00:00:00 00:00:00 [facility] Sex Assigned At [birth year] Universit y of 00:00:00 00:00:00 [facility] Smoking Status Start Date Stop Date Source Smokes tobacco daily 2012-06-15 00:00:00 Univers ity of [facility] Medications Ordered Filled Start Stop Current Ordering Indication Dosage Frequency Signature Comments Components Source Medication Medication Date Date Medication? Clinician (SIG) Name Name albuterol Yes [id number] 2{puff} Inhale 2 Univers 90 1-24 Puffs ity of mcg/actuati 00:00: every 6 Mio as on inhaler 00 (six) Medical hours as Branch needed for Wheezing or Shortness of Breath. albuterol Yes [id number] 2{puff} Inhale 2 Univers 90 1-24 Puffs ity of mcg/actuati 00:00: every 6 Mio as on inhaler 00 (six) Medical hours as Branch needed for Wheezing or Shortness of Breath. albuterol Yes [id number] 2{puff} Inhale 2 Univers 90 1-24 Puffs ity of mcg/actuati 00:00: every 6 Mio as on inhaler 00 (six) Medical hours as Branch needed for Wheezing or Shortness of Breath. albuterol Yes [id number] 2{puff} Inhale 2 Univers 90 1-24 Puffs ity of mcg/actuati 00:00: every 6 Mio as on inhaler 00 (six) Medical hours as Branch needed for Wheezing or Shortness of Breath. albuterol Yes [id number] 2{puff} Inhale 2 Univers 90 1-24 Puffs ity of mcg/actuati 00:00: every 6 Mio as on inhaler 00 (six) Medical hours as Branch needed for Wheezing or Shortness of Breath. albuterol Yes [id number] 2{puff} Inhale 2 Univers 90 1-24 Puffs ity of mcg/actuati 00:00: every 6 Mio as on inhaler 00 (six) Medical hours as Branch needed for Wheezing or Shortness of Breath. albuterol Yes [id number] 2{puff} Inhale 2 Univers 90 1-24 Puffs ity of mcg/actuati 00:00: every 6 Mio as on inhaler 00 (six) Medical hours as Branch needed for Wheezing or Shortness of Breath. naproxen 2021- No 500mg 500 mg, Univ ers (NAPROSYN) 12-20-30 Oral, ity of tablet 500 00:00: 23:01 ONCE, 1 Mio as mg 00 :00 dose, On Medical Wed Branch 12/19/21 at 1900, Routine HYDROcodone 2021- No 1{tbl} 1 tablet, Univers -acetaminop 12-20-30 Oral, ity of hen (NORCO) 00:00: 23:01 [place]CE[place] 1 [place] 10[place]325 mg 00 :00 dose, On Medica l tablet 1 Wed Branch tablet 12/19/21 at 1900, Routine naproxen 0 Yes [id number] 500mg Take 1 Un tommie (NAPROSYN) 3-30 [...] Indication s: acute pain naproxen 2021-0 Yes [id number] 500mg Take 1 Un tommie (NAPROSYN) 3-30 [...] Indication s: acute pain naproxen 2021-0 Yes [id number] 500mg Take 1 Un tommie (NAPROSYN) 3-30 [...] Indication s: acute pain naproxen 2021-0 Yes [id number] 500mg Take 1 Un tommie (NAPROSYN) 3-30 [...] Indication s: acute pain naproxen 2-0 Yes [id number] 500mg Take 1 Un tommie (NAPROSYN) 3-30 [...] Indication s: acute pain naproxen 2022-0 Yes [id number] 500mg Take 1 Un tommie (NAPROSYN) 3-30 [...] Indication s: acute pain naproxen 2021-0 Yes [id number] 500mg Take 1 Un tommie (NAPROSYN) 3-30 [...] Indication s: acute pain naproxen 0 Yes [id number] 500mg Take 1 Un tommie (NAPROSYN) 3-30 [...] Indication s: acute pain naproxen 0 Yes [id number] 500mg Take 1 Un tommie (NAPROSYN) 3-30 [...] 4-6). Indication s: acute pain Adderall Adderall 2019-0 Yes Boris 1 tablet Common 7-07 Szymanski Spirit 00:00: - [facility] 00 [facility] Alprazolam Alprazolam 2018- Yes Boris 1 tablet Common 2-10 Szymanski Spirit 00:00: - [facility] 00 [facility] acetaminoph 2015-0 Yes 1{tbl} Take 1 Un tommie en-codeine [...] blood 2022-10-15 14:46:00 116 mm[Hg] Univer sity [facility] Diastolic blood 2022-10-15 14:46:00 75 [facility]Hg[facility] 2022-10-15 14:46:00 67 /min [facility] Body temperature 2022-10-15 14:46:00 36.72 Barbara [facility] Body height 2022-10-15 14:46:00 171.5 cm [facility] Body weight 2022-10-15 14:46:00 99.338 kg [facility] BMI 2022-10-15 14:46:00 33.79 kg/m2 [facility] Oxygen saturation in 2022-10-15 14:46:00 100 /min [facility] Arterial blood by [facility] Pulse oximetry Branch Systolic blood 2021-12-19 22:30:00 135 mm[Hg] Univer sity [facility] Diastolic blood 2021-12-19 22:30:00 89 mm[Hg] Unive rsity [facility] Heart rate 2021-12-19 22:30:00 88 /min [facility] Body temperature 2021-12-19 22:30:00 36.83 Barbara [facility] Respiratory rate 2021-12-19 22:30:00 18 /min [facility] Body height 2021-12-19 22:30:00 170.2 cm [facility] Body weight 2021-12-19 22:30:00 104.327 kg [facility] BMI 2021-12-19 22:30:00 36.02 kg/m2 [facility] Oxygen saturation in 2021-12-19 22:30:00 100 /min [facility] Arterial blood by [facility] Pulse oximetry Branch Procedures Procedure Date / Time Performed Performing Clinician [facility] ASSIGNMENT OF BENEFITS 2022-10-15 14:25:09 Doctor Unassigned, No [facility] XR HIPS 2 VW LEFT 2021-12-19 23:08:53 Johnathon Martini [facility] NOTICE OF PRIVACY 2021-12-19 22:24:28 Doctor Unassigned, No [facility] CONSENT/REFUSAL FOR 2021-12-19 22:24:05 Doctor Unassigned, No [facility] DIAGNOSIS AND [facility] TREATMENT Encounters Start End Encounter Admission Attending Care Care Encounter Source Date/Time Date/Time Type Type Clinicians Facility Department ID 2021-10-17 [facility] [id number] Common 12:15:29 [id number] [facility] 2021-10-17 Outpatient Wallace Araujo STROSE [facility] [id number] Common 12:13:54 [id number] [facility] 2021-10-17 Outpatient WESLEY Szymanski [facility] [id number] Common 11:17:02 [facility] [id number] [facility] 2020-08-14 Inpatient [facility] [id number] [facility] 01:19:00 40 2023-03-04 2023-03-04 Outpatient Mario LEONARD [facility] [id number] Univers 14:30:00 14:30:[address] [facility] 2022-11-05 2022-11-05 Outpatient R ARRONNKECHI [facility] [id number] Univers 14:00:00 14:00:[address] [facility] 2022-10-18 2022-10-18 Telephone Jaret [facility] [id number] Univers 00:00:00 00:00:00 Kd HEALTH [id number] it y of [place] [id number] Mio as TANA?BLEA [id number] [facility] [address] OFFICE [facility] 2022-10-16 2022-10-16 Senior Officer Lab, Ang - Db [facility] [id number] Univers 07:30:00 07:45:00 Visit Kd Raygoza [id number] ity of [place] [id number] Mio as TANA?BLEA [id number] [facility] [address] [facility] OFFICE [facility] 2022-10-16 2022-10-16 Outpatient R KAREYLinn [facility] [id number] Univers 07:30:00 07:30:[address] [facility] 2022-10-16 2022-10-16 [facility] [id number] Univers 00:00:00 00:00:00 Kd [facility] [id number] it y of [place] [id number] Mio as TANA?BLEA [id number] [address] 2022-10-15 2022-10-15 Outpatient R JARET [facility] [id number] Univers 09:00:00 09:10:[address] [facility] 2022-10-15 2022-10-15 Office [facility] [id number] Univers 09:00:00 09:10:27 Visit Kd KIDD [id number] it y of [place] [id number] Mio as TANA?BLEA [id number] [address] OFFICE [facility] 2022-10-15 2022-10-15 Orders Doctor ORALIA [id number] Univers 00:00:00 00:00:00 Only Unassigned, ALIA [id number] ity of [place] [facility] [id number] [facility] [id number] [facility] 009 Branch 2021-12-19 2021-12-19 Emergency X Johnathon MARTINI [facility] ERT [id number] Univers 17:31:00 19:54:00 ity of [facility] 2021-12-19 2021-12-19 Emergency Johnathon Martini [facility] [id number] Univers 17:31:00 19:54:00 Eva BROWN [id number] i ty of [place] [id number] [facility] [id number] [facility] 084 Branch 2020-08-14 2020-08-14 Emergency [facility] [id number] [facility] 01:19:00 01:19:00 2020-03-28 2020-03-28 Out[facility] [id number] Common 09:08:00 09:08:[address] [facility] 2020-03-08 2020-03-08 Outpatient [facility] [id number] Common 08:04:00 08:04:[address] [facility] 2020-02-28 2020-02-28 Outpatient [facility] [id number] Common 10:00:00 10:00:[address] [facility] 2019-12-29 2019-12-29 Outpatient [facility] [id number] Common 11:00:00 11:00:[address] [facility] 2019-11-30 2019-11-30 Outpatient [facility] [id number] Common 11:32:00 11:32:[address] [facility] 2019-11-30 2019-11-30 Outpatient [facility] [id number] Common 08:30:00 08:30:[address] Sp[address] Family [facility] 2019-11-01 2019-11-01 Outpatient [facility] [id number] Common 10:30:00 10:30:[address] [facility] 2019-09-30 2019-09-30 Outpatient [facility] [id number] Common 08:30:00 08:30:[address] [facility] 2019-08-31 2019-08-31 Outpatient [facility] [id number] Common 10:00:00 10:00:[address] [facility] Results Test Description Test Time Test Comments Results Result Comments Source Sars-CoV-2/FLU A/B RSV PCR 2020-08-14 03:25:00 Test Item Value Reference Range Interpretation Comme nts Sars-CoV-2/FLU A/B RSV PCR (test code = For use under Emergency Use SARSFLURSVPCR) Authorization (EUA) only. Sars-CoV-2/FLU A/B RSV PCR (test code = ical-devices/emergen [id number] SARSFLURSVPCR1.1) ns. Influenza A PCR: (test code = Influenza Negative by Nucleic Acid Amplification A PCR:) Influenza B PCR: (test code = Influenza Negative by Nucleic Acid Amplification B PCR:) RSV PCR Result: (test code = RSV PCR Negative by Nucleic Acid Ampli fication Result:) SARS-CoV-2 PCR Result: (test code = Negative by Nucleic Acid Amplif ication SARS-CoV-2 PCR Result:) UC, Urine [id number] 03:07:00 Test Item Value Reference Range Interpretation Comments UC, Urine Culture NO GROWTH AFTER 24 HOURS (test code = UC) UC, Urine Culture Growth too young to (test code = UC) evaluate UC, Urine Culture Gardnerella vaginalis (test code = UC1.2) Angora Count (test >100,000 code = Angora Count) Comprehensive Metabolic [id number] 02:31:00 Test Item Value Reference Range Interpretation [...] 84 U/L 46-116 N = ALP) Ethanol [id number] 02:31:00 Test Item Value Reference Range Interpretation Comments Ethanol (test code = ETOH) < 3 mg/dL Complete Blood Count Auto [id number] 02:31:00 Test Item Value Reference Range Interpretation [...] = NRBCP) 0 % UA, Urinalysis Rflx Cult/[id number] 02:31:00 Test Item Value Reference Range Interpretation Comments Color,Urine (test code = Dark-Yellow Yellow UCOL) Clarity,Urine (test code = Slightly-Cloudy Clear A UCLAR) PH,Urine (test code = UPH.XX) 5.5 5.5-8.5 Specific [place],Urine (test >= 1.030 1.005-1.030 N code = [...] cells/uL Negative A (test code = ULEU) Ictotest,[id number] 02:31:00 Test Item Value Reference Range Interpretation Comments Ictotest,Urine (test code = Confirm Positive Confirm Neg UICTO) Urine [id number] 02:31:00 Test Item Value Reference Range Interpretation Comments RBC,Urine (test code = URBC.XX) 6-10 /HPF None Seen A WBC,Urine (test code = UWBC.XX) 6-10 /HPF None Seen A Squamous Epithelial Cell,Urine 0-2 /HPF None Seen (test code = USQEPI.XX) Bacteria,Urine (test code = UBACT) Few /HPF None Seen A Hyaline Casts,Urine (test code = 1-5 None Seen A UHYALC.XX) Drug Screen,[id number] 02:31:00 Test Item Value Reference Range Interpretation [...]
--- NOTE | 2023-08-15 08:01 | ER ---
Nurse's Notes [facility] Name: Ana Anne Age: 63 yrs Sex: Female : 1960 Arrival Date: 08/15/2023 Time: 07:22 Bed 14 Private MD: Diagnosis: Right middle finger middle phalanx avulsion fracture without dislocation. Presentation: 08/15 07:32 Chief complaint: Patient states: Smashed R hand 3rd digit in doorway at 0430. Bruising ll1 and pain since. Coronavirus screen: Vaccine status: Patient reports being unvaccinated. Client denies travel out of the [place] in the last 14 days. At this time, the client does not indicate any symptoms associated with coronavirus-19. Ebola Screen: Patient denies travel to an Ebola-affected area in the 21 days before illness onset. Initial Sepsis Screen: Does the patient meet any 2 criteria? No. Patient's initial sepsis screen is negative. Does the patient have a suspected source of infection? Yes: Bone or joint infection. Risk Assessment: Do you want to hurt yourself or someone else? Patient reports no desire to harm self or others. Onset of symptoms was August 15, 2023. 07:32 Method Of Arrival: Ambulatory ll1 07:32 Acuity: ISABEL 4 ll1 Triage Assessment: 07:34 General: Appears in no apparent distress. Behavior is calm, cooperative, appropriate ll1 for age. Pain: Complains of pain in right hand Pain currently is 8 out of 10 on a pain scale. Quality of pain is described as aching, throbbing. Musculoskeletal: Circulation, motion, and sensation intact. Capillary refill < 3 seconds, Swelling present in right hand Reports pain in right hand. Injury Description: Bruise. Historical: - Allergies: 07:27 Sulfa (Sulfonamide Antibiotics); ll1 - PSHx: 07:27 Appendectomy; section; ll1 - Immunization history:: Adult Immunizations up to date. - Social history:: Smoking status: Patient reports the use of cigarette tobacco products, smokes one pack cigarettes per day. Screenin:29 [facility] ED Fall Risk Assessment (Adult) History of falling in the last 3 months, db including since admission No falls in past 3 months (0 pts) Score/Fall Risk Level 0 - 2 = Low Risk Oriented to surroundings, Maintained a safe environment. Abuse screen: Denies threats or abuse. Denies injuries from another. Nutritional screening: No deficits noted. Tuberculosis screening: No symptoms or risk factors identified. Assessment: 08:00 Reassessment: Patient appears in no apparent distress at this time. Patient and/or db family updated on plan of care and expected duration. Pain level reassessed. Patient is alert, oriented x 3, equal unlabored respirations, skin warm/dry/pink. General: Appears in no apparent distress. comfortable, Behavior is calm, cooperative. Pain: Complains of pain in right hand. Neuro: Level of Consciousness is awake, alert, obeys commands, Oriented to person, place, time, situation. Musculoskeletal: Circulation, motion, and sensation intact. Capillary refill < 3 seconds, Range of motion: intact in all extremities, Swelling present in right hand Reports pain in right hand. Vital Signs: 07:32 BP 128 / 83; Pulse 66; Resp 16; Temp 98.6; Pulse Ox 96% ; Weight 99.79 kg; Height 5 ft. ll1 7 in. ; Pain 8/10; 08:00 BP 127 / 73; Pulse 55; Resp 16; Pulse Ox 97% on R/A; db 07:32 Body Mass Index 34.46 (99.79 kg, 170.18 cm) ll1 07:32 Pain Scale: Adult ll1 ED Course: 07:25 Patient arrived in ED. mg5 07:26 Arm band placed on Patient placed in an exam room, on a stretcher. ll1 07:30 Perri Szymanski MD is Attending Physician. sp3 07:34 Triage completed. ll1 07:58 Ariela Duron RN is Primary Nurse. db 07:59 Alvaro Guajardo MD is Referral Physician. sp3 08:04 Hand Right 3 View XRAY In Process Unspecified. EDMS 08:29 Patient has correct armband on for positive identification. Bed in low position. Call db light in reach. Side rails up X 1. Provided Education on: DISCHARGE. Pulse ox on. NIBP on. 08:29 No provider procedures requiring assistance completed. Patient did not have IV access db during this emergency room visit. FINGER SPLINT APPLIED PER ORDER. Administered Medications: No medications were administered Medication: 08:29 VIS not applicable for this client. db Outcome: 08:00 Discharge ordered by . sp3 08:29 Discharged to home ambulatory, db 08:29 Condition: stable 08:29 Instructed on discharge instructions, follow up and referral plans. Prescriptions given X 1, 08:31 Patient left the ED. db Signatures: Dispatcher [employer] Urszula Albright, RN RN ll1 Perri Szymanski MD MD sp3 Ariela Duron RN RN db Stephie Ashley mg5 Corrections: (The following items were deleted from the chart) 07:32 07:27 Social history: Smoking status: Patient denies any tobacco usage or history of. ll1 ll1
--- NOTE | 2023-08-15 08:01 | EDPHYS ---
Physician Documentation [facility] Name: Ana Anne Age: 63 yrs Sex: Female : 1960 Arrival Date: 08/15/2023 Time: 07:22 Bed 14 Private MD: ED Physician Perri Szymanski HPI: 08/15 07:34 This 63 yrs old Female presents to ER via Unassigned with complaints of Finger Injury. sp3 07:34 63-year-old female with no significant past medical history presents with right hand sp3 pain in the middle digit. Patient states that she had a traumatic injury when she "laughed and threw her hands up and it hit the wall". She denies any other trauma, crush injury, bleeding, break in the skin, or any other injury on any other part of her body. Review of systems otherwise negative for headache, neck pain, chest pain, back pain, numbness or tingling, extremity pain other than the right hand, or any other signs or symptoms at this time.. Historical: - Allergies: 07:27 Sulfa (Sulfonamide Antibiotics); ll1 - PSHx: 07:27 Appendectomy; section; ll1 - Immunization history:: Adult Immunizations up to date. - Social history:: Smoking status: Patient reports the use of cigarette tobacco products, smokes one pack cigarettes per day. ROS: 07:35 Constitutional: Negative for fever, chills, and weight loss, Eyes: Negative for injury, sp3 pain, redness, and discharge, ENT: Negative for injury, pain, and discharge, Neck: Negative for injury, pain, and swelling, Cardiovascular: Negative for chest pain, palpitations, and edema, Respiratory: Negative for shortness of breath, cough, wheezing, and pleuritic chest pain, Abdomen/GI: Negative for abdominal pain, nausea, vomiting, diarrhea, and constipation, Back: Negative for injury and pain, Skin: Negative for injury, rash, and discoloration, Neuro: Negative for headache, weakness, numbness, tingling, and seizure, Psych: Negative for depression, anxiety, suicide ideation, homicidal ideation, and hallucinations, Allergy/Immunology: Negative for hives, rash, and allergies, Endocrine: Negative for neck swelling, polydipsia, polyuria, polyphagia, and marked weight changes, Hematologic/Lymphatic: Negative for swollen nodes, abnormal bleeding, and unusual bruising, 07:35 All other systems are negative, Exam: 07:35 Constitutional: This is a well developed, well nourished patient who is awake, alert, sp3 and in no acute distress. Head/Face: Normocephalic, atraumatic. Neck: Trachea midline, no thyromegaly or masses palpated, and no cervical lymphadenopathy. Supple, full range of motion without nuchal rigidity, or vertebral point tenderness. No Meningismus. Chest/axilla: Normal chest wall appearance and motion. Nontender with no deformity. No lesions are appreciated. Cardiovascular: Regular rate and rhythm with a normal S1 and S2. No gallops, murmurs, or rubs. Normal PMI, no JVD. No pulse deficits. Respiratory: Lungs have equal breath sounds bilaterally, clear to auscultation and percussion. No rales, rhonchi or wheezes noted. No increased work of breathing, no retractions or nasal flaring. Skin: Warm, dry with normal turgor. Normal color with no rashes, no lesions, and no evidence of cellulitis. Neuro: Awake and alert, GCS 15, oriented to person, place, time, and situation. Cranial nerves II-XII grossly intact. Motor strength 5/5 in all extremities. Sensory grossly intact. Cerebellar exam normal. Normal gait. 07:35 Musculoskeletal/extremity: Right hand middle digit swollen and tender to palpation. Full range of motion is present with no crepitus. Distal capillary refill is normal. Neurovascular exam is normal. Remainder of extremities are also normal.. Vital Signs: 07:32 BP 128 / 83; Pulse 66; Resp 16; Temp 98.6; Pulse Ox 96% ; Weight 99.79 kg; Height 5 ft. ll1 7 in. ; Pain 8/10; 08:00 BP 127 / 73; Pulse 55; Resp 16; Pulse Ox 97% on R/A; db 07:32 Body Mass Index 34.46 (99.79 kg, 170.18 cm) ll1 07:32 Pain Scale: Adult ll1 MDM: 07:30 Patient medically screened. sp3 07:36 Data reviewed: vital signs, nurses notes, radiologic studies. ED course: 63-year-old sp3 female with right middle finger pain. X-rays pending. I am not highly suspicious for fracture. Likely contusion/ecchymoses. Will place in finger splint regardless and follow-up with orthopedics.. 07:58 ED course: Avulsion fracture at the proximal and of the middle right finger middle sp3 phalanx at the PIP joint on the volar side. There is significant dislocation noted. We will place patient in finger splint and discharged home with follow-up orthopedics.. 08/15 07:33 Order name: Hand Right 3 View XRAY sp3 08/15 07:59 Order name: Finger Splint: Aluminum, right middle finger; Complete Time: 08:07 sp3 Administered Medications: No medications were administered Disposition Summary: 08/15/23 08:00 Discharge Ordered Notes: Location: Home sp3 Condition: Stable sp3 Diagnosis - Right middle finger middle phalanx avulsion fracture without dislocation. sp3 Followup: sp3 - With: Alvaro Guajardo MD - When: Upon discharge from the Emergency Department - Reason: Recheck today's complaints Discharge Instructions: - Discharge Summary Sheet sp3 - Finger Fracture, Adult sp3 Forms: - Medication Reconciliation Form sp3 - Thank You Letter sp3 - Antibiotic Education sp3 - Prescription Opioid Use sp3 - Patient Portal Instructions sp3 - Leadership Thank You Letter sp3 Prescriptions: - Diclofenac Sodium 75 mg Oral Tablet Sustained Release - take 1 tablet ORAL route 2 times per day; 30 tablet; Refills: 0, Product sp3 Selection Permitted Signatures: Dispatcher [employer] Urszula Albright RN RN ll1 Perri Szymanski MD MD sp3 Corrections: (The following items were deleted from the chart) 07:32 07:27 Social history: Smoking status: Patient denies any tobacco usage or history of. ll1 ll1
--- NOTE | 2023-08-15 08:34 | RAD REPORT ---
EXAM DESCRIPTION: RAD - Hand Right 3 View - 08/15/2023 8:02 am CLINICAL HISTORY: Right hand pain status post injury FINDINGS: No fracture or dislocation is seen.
[2023-08-15 08:37] VITALS: TEMP 98.6
[2023-08-15 08:38] VITALS: BP 127/73; O2SAT 97
== END 2023-08-15 08:31 | disposition home or self-care (01) ==
LOC: ER 07:22
PROC: 2W3JX1Z Immobilization of Right Finger using Splint (ICD-10-PCS; principal; 2023-08-15)
DX: S62.612A Displaced fracture of proximal phalanx of right middle finger, initial encounter for closed fracture (principal); F17.210 Nicotine dependence, cigarettes, uncomplicated; Z88.2 Allergy status to sulfonamides
CPT/HCPCS: 99283